=== PATIENT | male | born 1955 | race Caucasian/White ===

== ENCOUNTER 2022-02-27 23:16 | Emergency (ER) | payer MEDICARE, OTHER, SELFPAY ==
[2022-02-27 23:42] VITALS: BP 178/83; PULSE 60; RESP 16; TEMP 36.7; O2SAT 95; BMI 32.3
[2022-02-28] MEDS: MECLIZINE HCL 25 MG TABLET PO (00:48)
[2022-02-28] MEDS: ONDANSETRON ODT 4 MG TAB PO (00:48)
[2022-02-28] MEDS: diazePAM 5 MG TABLET PO (00:49)
[2022-02-28 01:55] VITALS: BP 141/89; PULSE 59; RESP 16; O2SAT 95
--- NOTE | 2022-02-28 08:20 | ED.DIZZY ---
HPI - Dizziness General Chief Complaint: Dizziness/Vertigo Stated Complaint: Dizzy and head spinning and forgetful Time Seen by Provider: 02/28/22 00:13 Source: patient, family and RN notes reviewed History of Present Illness HPI Narrative: 66-year-old man presenting to the emergency department with complaint of 2, now 3rd day of dizziness with movement. He is saying that he has vertigo, that his son has similar. Initially saying that he is dizzy all the time, further conversation modified to sense of lightheadedness when his eyes are closed. No loss of vision. No complaint of headache. No loss of sensation or focal weakness. This seems to have started upon waking. He has fallen a couple of times indicating right upper arm bruise. Does endorse a history of chronic sinusitis. No fever or recent cough or cold symptoms, other than the sinusitis as mention. No facial pain. No chest pain, no palpitations. No shortness of breath. No vomiting but does have nausea. Extracted from my prior visit with Mr. Nguyễn-- PAST HISTORY:? 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 Related Data Home Medications Medication Instructions Recorded Confirmed nutritional supplements 02/27/22 Previous Rx's Medication Instructions Recorded diazepam 5 mg tablet 5 - 10 mg PO BID PRN #10 tab 02/28/22 diazepam 5 mg tablet (Valium) 5 - 10 mg PO TID PRN #1 tab 02/28/22 meclizine 25 mg tablet 25 mg PO TID PRN #21 tab 02/28/22 meclizine 25 mg tablet 25 mg PO TID PRN #21 tab 02/28/22 Allergies Allergy/AdvReac Type Severity Reaction Status Date / Time No Known Drug Allergies Allergy Verified 02/27/22 23:48 Review of Systems Status of ROS: Reports: 10 or more systems reviewed and unremarkable except as noted in History and below [facility] Social History Smoking Status: Never smoker How often do you have a drink containing alcohol: never AUDIT-C Alcohol total score: 0 Non-prescribed substance use: denies use Exam Narrative: Exam Narrative: General: pleasant, nad, breathing easily. CN 2 - 12 intact. Mentating normally. Speaking easily. Dressed in shirt Skin: warm and dry and well-perfused peripherally without apparent rash. There is light bruising on the posterior right upper arm. HEENT: head looks atraumatic. Ears canals are clear and TMs without evidence of inflammation or trauma. Eyes are non-icteric, without sclera injection, PERRLA. EOMi. He sounds congested. There is no facial swelling erythema or tenderness. Oropharynx is moist, symmetrical. Neck and Back: Neck is supple, without tenderness and without lymphadenopathy. Back without tenderness. Cardiac: RRR no MRG Lungs/Chest: clear Abdomen/Pelvis: Soft and overweight Musculoskeletal/Extremities: Moving all extremities without difficulty, fluidly. Full strength. as above No extremity edema. Normal sensation. Well perfused Further neuro-there is nystagmus more left beating I would say. did do hints exam as well. This worsened symptoms. Positive to the left and little less so to the right. Const: Vital Signs, click to edit/add: Vital Signs - 24 hr 02/27/22 23:42 02/28/22 01:55 Temperature 98.1 F Pulse Rate [Left P ulse Oximeter] 60 59 L Respiratory Rate 16 16 Blood Pressure [Ri ght Upper Arm] 178/83 H 141/89 H Pulse Oximetry 95 95 Documenting provider has reviewed patient's vital signs: yes Course Course Hospital Course: See exam and interview above & MDM below Vital Signs Vital signs: Initial Vital Signs Temperature 98.1 F 02/27/22 23:42 Temperature Source Temporal Artery Scan 02/27/22 23:42 Pulse Rate 60 02/27/22 23:42 Respiratory Rate 16 02/27/22 23:42 Blood Pressure 178/83 H 02/27/22 23:42 Blood Pressure Mean 114 02/27/22 23:42 Blood Pressure Position Sitting 02/27/22 23:42 Pulse Oximetry 95 02/27/22 23:42 Oxygen Delivery Method 02/27/22 23:42 Vital Signs Temperature 98.1 F 02/27/22 23:42 Pulse Rate 60 02/27/22 23:42 Respiratory Rate 16 02/27/22 23:42 Blood Pressure 178/83 H 02/27/22 23:42 Pulse Oximetry 95 02/27/22 23:42 Temperature 98.1 F 02/27/22 23:42 Pulse Rate 59 L 02/28/22 01:55 Respiratory Rate 16 02/28/22 01:55 Blood Pressure 141/89 H 02/28/22 01:55 Pulse Oximetry 95 02/28/22 01:55 MDM - Dizziness MDM Narrative Medical decision making narrative: I appreciate this history of normal-pressure hydrocephalus and schwannoma. Duration of symptoms lends less urgency to stroke evaluation. Given story and exam findings I think vertigo of peripheral origin is more likely. Decided to test with Valium. Also gave meclizine. On reassessment symptoms have lessened. Feels he can go home. I offered work note; he thought that was a good idea. Discharged with prescriptions for Valium and meclizine. Medical Records Attestation: I reviewed the patient's medical records. Discharge Plan Discharge Clinical Impression: Peripheral positional vertigo Patient Disposition: Home w/ Parent or Adult Condition: Improved Additional Instructions: Hydrate. Rest. If not too sedating, take the meclizine regularly dosed over the next 4-5 days. If you can begin to say that turning your head toward the left, for example, seems to exacerbate your symptoms, it may bethat the left inner ear is involved and Valorie maneuvers might be helpful focus on that left side. Same goes for the right side. See handout on Valorie maneuvers. Physical therapy can be helpful here. You might schedule with your primary doctor to get in with physical therapy/[facility]; it may be that you can schedule with physical therapy directly. Return for new and focal weakness, intractable vomiting, severe headache. Prescriptions: New meclizine 25 mg tablet 25 mg PO TID PRN (Reason: dizziness) Qty: 21 1RF diazepam [Valium] 5 mg tablet 5 - 10 mg PO TID PRN (Reason: for severe dizziness) Qty: 1 0RF diazepam 5 mg tablet 5 - 10 mg PO BID PRN (Reason: for more severe dizziness) Qty: 10 0RF meclizine 25 mg tablet 25 mg PO TID PRN (Reason: dizziness) Qty: 21 0RF No Action nutritional supplements 0RF Follow Up/Referrals: Sanjeev Castro MD [Primary Care Provider] - Stand Alone Forms: [facility] Info Instructions
== END 2022-02-28 02:00 | disposition home or self-care (01) ==
PROVIDERS: Emergency Provider Family Medicine; PCP Family Medicine
DX: H81.399 Other peripheral vertigo, unspecified ear (principal)
CPT/HCPCS: 99283; 99284; A9270

== ENCOUNTER 2022-05-21 10:36 | Emergency (ER) | payer MEDICARE, OTHER, SELFPAY ==
[2022-05-21 10:48] VITALS: BP 184/96; PULSE 72; RESP 18; TEMP 36.8; O2SAT 96; BMI 34.3
[2022-05-21 11:27] LABS: Appearance Urine Clear (Clear); Bilirubin Urine Negative (Negative); Blood Urine 2+ (Negative); Color Urine Yellow (Yellow); Glucose Urine Negative (Negative); Ketones Urine Negative (Negative); Leukocyte Esterase Urine Negative (Negative); Nitrite Urine Negative (Negative); Protein Urine Negative (Negative); Specific Gravity Urine 1.015 (1.000-1.030); Urobilinogen Urine 0.2 (0.2-1.0)
[2022-05-21 11:41] LABS: WBC Urine 0-2 (0-5)
--- NOTE | 2022-05-21 12:14 | CRLHL7_ITS ---
For Patients: As a result of the Century Cures Act, medical imaging exams and procedure reports are released immediately into your electronic medical record. You may view this report before your referring provider. If you have questions, please contact your health care provider. INDICATION: Urinary issues, constipation TECHNIQUE: Abdomen/Pelvis radiograph 4 views COMPARISON: None FINDINGS: The sensitivity and specificity of the exam are moderately limited by the patient`s body habitus. Bowel: The bowel gas pattern is normal without evidence of bowel obstruction. Soft tissue: No evidence of pneumoperitoneum present. No suspicious calcifications noted. Surgical clips are noted in the right pelvis. Bone: Unremarkable for age. IMPRESSION: 1. Unremarkable appearance of the visualized abdomen. Dictated by: Kelvin Carnes MD @ 05/21/2022 13:29:03 (Electronically Signed)
--- NOTE | 2022-05-21 12:15 | ED_ITS ---
HPI - General Adult General Time Seen by Provider: 12:16 Date Seen: 05/21/22 Chief complaint: Urogenital Problems, Male Stated complaint: Urinary tract issues Time Seen by Provider: 05/21/22 12:13 Source: patient Mode of arrival: ambulatory Limitations: no limitations History of Present Illness HPI narrative: Marin is a 66 year old male past medical history of prostatectomy 20 years ago, chronic kidney disease, depression and anxiety presents emerged department via private car with urogenital problem. Patient states that since he had prostate surgery 20 years ago he also received radiation, He has had issues and was told to wear a depends.Patient feels that over the last few weeks and now days he has had increased urinary frequency, urgency, no dysuria or hematuria. patient feels that he has not complete emptied, it is annoying because he keeps running bathroom. Patient feels that something is pushing against his bladder, patient denies any fevers or chills, denies any back pain her abdominal pain, he does get some left upper quadrant abdominal bloating from time to time, he feels more gassy, he states that his bowel movements, are smal l, he denies any constipation he denies any upper respiratory complaints, he is scheduled to see orthopedics here in [place] about his pain and possible meniscectomy. He has not had a bladder infection in the past. Related Data Home Medications Medication Instructions Recorded Confirmed nutritional supplements 02/27/22 Previous Rx's Medication Instructions Recorded diazepam 5 mg tablet 5 - 10 mg PO BID PRN for more 02/28/22 severe dizziness #10 tabs diazepam 5 mg tablet (Valium) 5 - 10 mg PO TID PRN for severe 02/28/22 dizziness #1 tab meclizine 25 mg tablet 25 mg PO TID PRN dizziness #21 tabs 02/28/22 meclizine 25 mg tablet 25 mg PO TID PRN dizziness #21 tabs 02/28/22 tamsulosin 0.4 mg capsule (Flomax) 0.4 mg PO DAILY #7 caps 05/21/22 Allergies Allergy/AdvReac Type Severity Reaction Status Date / Time No Known Drug Allergies Allergy Verified 02/27/22 23:48 Review of Systems Status of ROS: Reports: 10 or more systems reviewed and unremarkable except as noted in History and below PFSH PFS Social History Smoking Status: Light tobacco smoker What tobacco products do you use: cigars Do you use any of these nicotine containing products: None Second hand tobacco smoke exposure: No How often do you have a drink containing alcohol: never AUDIT-C Alcohol total score: 0 Non-prescribed substance use: denies use service: Yes Exam Narrative: Exam Narrative: general: no obvious distress sitting comfortably HEENT: pupils equal round reactive to light, extraocular muscles intact neck: supple full range of motion lungs: clear to auscultation bilaterally heart: normal sinus rhythm S1-S2 abdomen: bowel sounds present, nontender in all four quadrants. genitourinary: normal scrotum and testes, no penile lesions. muscle skeletal: nontender to palpation in the lower lumbar spine, no CVA tenderness neuro: alert awake and oriented x3 Const: Vital Signs, click to edit/add: Vital Signs - 24 hr 05/21/22 10:48 05/21/22 13:32 Temperature 98.2 F 98.1 F Pulse Rate [Pulse Oximeter] 72 72 Respiratory Rate 18 16 Blood Pressure [Ri ght Upper Arm] 184/96 H 179/96 H Pulse Oximetry 96 97 Oxygen Delivery Me thod Room Air Room Air Course Course Hospital Course: 12:15 PM: AIDET performed. vitals are normal at this time, workup will include urinalysis, urine culture, CBC, CMP in bladder scan, to rule out infection. Differential diagnosis include but is not limited to BPH, X, prostatitis, prostate cancer neurogenic bladder, constipation and paruresis, this includes the life-threatening complication of cancer. Reevaluation(s) Reevaluation #1: Patient was updated on his urinalysis, lab urinalysis did show 2+ blood, 5-10 RBCs, no signs of any infection, imaging was unremarkable no signs of any bowel obstruction or constipation, CBC showed no leukocytosis, metabolic panel within normal limits, mild elevated lipase 381 the patient did not have any abdominal pain at this time. Wii obtain CT abdomen and pelvis without IV contrast, r/o urolithiasis. Time: 13:33 Reevaluation #2: patient updated on his imaging, IMPRESSION: 7 x 4 mm stone in the distal left ureter causing mild hydronephrosis. Plan to given him some IV fluids, flomax 0.4 mg, UA negative for infection. Patient wishes to be discharged he will take the Flomax, he has follow up with his primary care provider this Friday, no signs of infected stone. He will continue to push the fluids, He was given prescription for Flomax 0.4 mg over the next 7 days. Reasons return given. Vital Signs Vital signs: Initial Vital Signs Temperature 98.2 F 05/21/22 10:48 Temperature Source Temporal Artery Scan 05/21/22 10:48 Pulse Rate 72 05/21/22 10:48 Respiratory Rate 18 05/21/22 10:48 Blood Pressure 184/96 H 05/21/22 10:48 Blood Pressure Mean 125 05/21/22 10:48 Blood Pressure Position Sitting 05/21/22 10:48 Pulse Oximetry 96 05/21/22 10:48 Oxygen Delivery Method 05/21/22 10:48 Vital Signs Temperature 98.2 F 05/21/22 10:48 Pulse Rate 72 05/21/22 10:48 Respiratory Rate 18 05/21/22 10:48 Blood Pressure 184/96 H 05/21/22 10:48 Pulse Oximetry 96 05/21/22 10:48 Oxygen Delivery Method 05/21/22 10:48 Temperature 98.1 F 05/21/22 13:32 Pulse Rate 72 05/21/22 13:32 Respiratory Rate 16 05/21/22 13:32 Blood Pressure 179/96 H 05/21/22 13:32 Pulse Oximetry 97 05/21/22 13:32 Oxygen Delivery Method 05/21/22 13:32 Medical Decision Making Lab Data Labs: Lab Results 05/21/22 05/21/22 05/21/22 Range/Units 11:07 12:36 12:36 WBC 9.92 (4.50-11.00) K/uL RBC 5.31 (4.30-5.90) m/uL Hgb 16.9 (13.5-17.5) gm/dL Hct 48.9 (37.0-53.0) % MCV 92 (80-100) fL MCH 32 (26-34) pg MCHC 35 (32-36) gm/dL RDW Coeff of [place] 12.3 (11.5-15.5) % Plt Count 248 (140-440) K/uL Neut % (Auto) 71.8 (42.0-72.0) % Lymph % (Auto) 16.9 L (20-44) % Chase % (Auto) 7.1 (0.0-11.0) % Eos % (Auto) 3.6 (0.0-7.0) % Baso % (Auto) 0.4 (0.0-3.0) % Neut # (Auto) 7.12 H (1.7-7.0) K/uL Lymph # (Auto) 1.70 (0.90-2.90) K/uL Chase # (Auto) 0.70 (0.00-0.90) K/UL Eos # (Auto) 0.36 (0.00-0.50) K/uL Baso # (Auto) 0.04 (0.00-0.30) K/uL Abs Immat Gran (auto) 0.02 (0.00-0.30) K/uL Sodium 139 (135-149) mmol/L Potassium 4.3 (3.6-5.1) mmol/L Chloride 102 (96-114) mmol/L Carbon Dioxide 26 (20-32) mmol/L BUN 16 (7-30) mg/dL Creatinine 1.1 (0.5-1.5) mg/dL Estimated Creat Clear 53.82 Estimated GFR 73 ml/min Glucose 96 (60-115) mg/dL Calcium 10.6 (8.4-10.6) mg/dL Total Bilirubin 0.7 (0.1-1.5) mg/dL AST 32 (12-35) U/L ALT 48 (4-50) U/L Alkaline Phosphatase 106 (40-150) U/L Total Protein 7.7 (6.0-8.3) g/dL Albumin 4.6 (3.3-5.0) g/dL Lipase 381 H (23-300) U/L Urine Color Yellow (Yellow) Urine Appearance Clear (Clear) Urine pH 6.0 (5.0-8.5) Ur Specific [place] 1.015 (1.000-1.030) Urine Protein Negative (Negative) Urine Glucose (UA) Negative (Negative) Urine Ketones Negative (Negative) Urine Blood 2+ A (Negative) Urine Nitrite Negative (Negative) Urine Bilirubin Negative (Negative) Urine Urobilinogen 0.2 (0.2-1.0) Ur Leukocyte Esterase Negative (Negative) Urine RBC 5-10 A (0-2) Urine WBC 0-2 (0-5) Ur Squamous Epith Cells None (None-Few) Urine Bacteria None (None) Discharge Plan Discharge Clinical Impression: Urolithiasis Patient Disposition: Home, Self-Care Condition: Improved Instructions: Renal Colic (ED) Additional Instructions: To take the Flomax 0.4 mg daily until his appointment with primary care provider this Friday, continue to push the fluids, Motrin 400-600 mg every 4-6 hours as needed for pain, to follow up as scheduled this Friday with primary care provider, return if worsening symptoms. Activity Level: Activity as Tolerated Prescriptions: New tamsulosin [Flomax] 0.4 mg capsule 0.4 mg PO DAILY Qty: 7 2RF No Action nutritional supplements meclizine 25 mg tablet 25 mg PO TID PRN (Reason: dizziness) Qty: 21 1RF diazepam [Valium] 5 mg tablet 5 - 10 mg PO TID PRN (Reason: for severe dizziness) Qty: 1 0RF diazepam 5 mg tablet 5 - 10 mg PO BID PRN (Reason: for more severe dizziness) Qty: 10 0RF meclizine 25 mg tablet 25 mg PO TID PRN (Reason: dizziness) Qty: 21 0RF Follow Up/Referrals: Sanjeev Castro MD [Staff Physician] - Stand Alone Forms: [facility] Info Instructions
[2022-05-21 12:45] LABS: Basophils Absolute Auto 0.04 K/uL (0.00-0.30); Basophils Percent Auto 0.4 % (0.0-3.0); Eosinophils Absolute Auto 0.36 K/uL (0.00-0.50); Eosinophils Percent Auto 3.6 % (0.0-7.0); Hematocrit 48.9 % (37.0-53.0); Hemoglobin* 16.9 gm/dL (13.5-17.5); Immature Granulocytes Abs Auto 0.02 K/uL (0.00-0.30); Lymphocytes Percent Auto 16.9 % (20-44); Mean Corpuscular HGB Conc 35 gm/dL (32-36); Mean Corpuscular Hemoglobin 32 pg (26-34); Mean Corpuscular Volume 92 fL (80-100); Monocytes Percent Auto 7.1 % (0.0-11.0); Neutrophils Absolute Auto 7.12 K/uL (1.7-7.0); Neutrophils Percent Auto 71.8 % (42.0-72.0); Platelet Count* 248 K/uL (140-440); RDW Coefficient of Variation % 12.3 % (11.5-15.5); Red Blood Count 5.31 m/uL (4.30-5.90); White Blood Count* 9.92 K/uL (4.50-11.00)
[2022-05-21 12:58] LABS: Slide Review Reflex No
[2022-05-21 13:00] LABS: Albumin* 4.6 g/dL (3.3-5.0); Chloride* 102 mmol/L (96-114)
[2022-05-21 13:01] LABS: Potassium* 4.3 mmol/L (3.6-5.1); Sodium* 139 mmol/L (135-149)
[2022-05-21 13:03] LABS: Alkaline Phosphatase* 106 U/L (40-150); Aspartate Amino Transferase* 32 U/L (12-35); Bilirubin Total* 0.7 mg/dL (0.1-1.5); Blood Urea Nitrogen* 16 mg/dL (7-30); Carbon Dioxide* 26 mmol/L (20-32); Creatinine* 1.1 mg/dL (0.5-1.5); Est. Creatinine Clearance* 53.82; Estimated Glomerular Filt Rate 73 ml/min; Glucose* 96 mg/dL (60-115); Lipase* 381 U/L (23-300); Total Protein* 7.7 g/dL (6.0-8.3)
[2022-05-21 13:04] LABS: Alanine Aminotransferase* 48 U/L (4-50); Calcium* 10.6 mg/dL (8.4-10.6)
[2022-05-21 13:32] VITALS: BP 179/96; PULSE 72; RESP 16; TEMP 36.7; O2SAT 97
--- NOTE | 2022-05-21 13:39 | CRLHL7_ITS ---
For Patients: As a result of the Century Cures Act, medical imaging exams and procedure reports are released immediately into your electronic medical record. You may view this report before your referring provider. If you have questions, please contact your health care provider. INDICATION: Urinary frequency and retention. TECHNIQUE: CT abdomen and pelvis without contrast. COMPARISON: 12/31/2015. FINDINGS: Lower chest: Unremarkable. Liver: Normal in size and attenuation. No suspicious masses. Gallbladder and bile ducts: Minimal cholelithiasis. No biliary dilatation. Pancreas: Unremarkable. No mass or inflammation. Spleen: Normal in size. No masses. Adrenal glands: Normal in size. No nodules. Kidneys: 7 x 4 mm stone in the distal left ureter near the UVJ is causing mild hydronephrosis. No other stones. Prominent simple appearing cyst is in the cortex of the right kidney. GI tract: Sigmoid diverticulosis. Otherwise unremarkable GI tract. Normal appendix. Vasculature: Abdominal aorta is normal in caliber. Lymph nodes: No lymphadenopathy. Peritoneum/Abdominal Wall: Unremarkable. No sign of mass or infiltration. No free air or significant free fluid. Pelvis: Prostatectomy changes. Pelvic structures otherwise unremarkable. Bones: Unremarkable for age. IMPRESSION: 7 x 4 mm stone in the distal left ureter causing mild hydronephrosis. Please note that all CT scans at this facility use dose modulation, iterative reconstruction, and/or weight-based dosing when appropriate to reduce radiation dose to as low as reasonably achievable. Dictated by Kaushal Dolan MD @ 05/21/2022 2:44:11 PM (Electronically Signed)
--- OUTSIDE RECORDS SUMMARY | 2022-05-21 13:43 | XMS_ITS | Encounter Summary ---
:1955 Author Organization [facility] Address [address] [place] [address] Care Team Providers Name Role Phone Sanjeev Castro MD Primary Care Provider [facility] Unavailable [phone] Encounter Details Date Type Department Care Team Description 03/13/2022 Travel Social History Tobacco Use Types Packs/Day Years Used Date Smoking Tobacco: Former Cigarettes Quit : 1973 Smokeless Tobacco: Never Alcohol Use Standard Drinks/Week Comments Not Currently 1 (1 standard drink = 0.6 oz pure alcoho l) very rarely Alcohol Habits Answer Date Recorded How often do you have a drink containing alcohol? Never 05/15/2021 How many drinks containing alcohol do you have on a Not aske d typical day when you are drinking? How often do you have six or more drinks on one occasion? No t asked Comment: very rarely 05/15/2021 Sex Assigned at Date Recorded Male 03/12/2022 2:47 PM CDT COVID-19 Exposure Response Date Recorded In the last 10 days, have you been in contact with No / Unsu re 03/13/2022 1:19 PM CDT someone who was confirmed or suspected to have Coronavirus/COVID-19? documented as of this encounter Plan of Treatment Not on filedocumented as of this encounter Visit Diagnoses Not on filedocumented in this encounter Care Teams Mate Chief Relationship Specialty Start Date End Date Sanjeev Castro MD PCP - General 04/25/21 [address] [place] [address] [facility] PCP - [facility] [place] [address] [place] [phone] documented as of this encounter
--- OUTSIDE RECORDS SUMMARY | 2022-05-21 13:43 | XMS_ITS | Encounter Summary ---
:1955 Author Organization [facility] Address [address] [place] [address] Care Team Providers Name Role Phone Sanjeev Castro MD Primary Care Provider Reason for Visit (Routine) - Closed Specialty Diagnoses / Procedures Referred By Contact Refer red To Contact Diagnoses NPH (normal pressure hydrocephalus) (HCC) Schwannoma of nerve of head Brandi Ortiz PA-C Procedures MRI BRAIN W/O&W CON [address] [place] [id number] Referral ID Status Reason Start Date Expiration Date Visits Requ ested Visits Authorized [id number] Closed 05/15/2021 1 1 Encounter Details Date Type Department Care Team Description 05/27/2021 Ancillary Procedure [facility] of NPH (normal pressure hydrocephalus) (HCC); Neurology - [place] Schwannoma of nerve of head [facility] [address] [place] [id number] Social History Tobacco Use Types Packs/Day Years [...] Exposure Response Date Recorded In the last month, have you been in contact with No / Unsure 05/15/2021 12:17 PM CDT someone who was confirmed or suspected to have Coronavirus / COVID-19? documented as of this encounter Last Filed Vital Signs Vital Sign Reading Time Taken Comments Blood Pressure - - Pulse - - Temperature - - Respiratory Rate - - Oxygen Saturation - - Inhaled Oxygen Concentration - - Weight 91.6 kg (202 lb) 05/27/2021 11:53 AM CDT Height - - Body Mass Index - - documented in this encounter Plan of Treatment Not on filedocumented as of this encounter Procedures Procedure Name Priority Date/Time Associated Diagnosis Comme nts MRI BRAIN W/O&W CON Routine 05/27/2021 12:18 PM NPH (normal pr essure Results for this CDT hydrocephalus) ( HCC) procedure are in Schwannoma of nerve the resu lts of head section. documented in this encounter Results MRI BRAIN W/O&W CON (05/27/2021 12:18 PM CDT) Anatomical Region Laterality Modality Head Magnetic Resonance Specimen (Source) Anatomical Collection Method Collection Time Re ceived Time Location / / Volume Laterality 06/01/2021 11:01 AM CDT Addenda Addendum by Ta Escobar MD on 1 11:07 AM CDT ADDENDUM #1 ADDENDUM: Further review demonstrates a homogeneous, lobulated extra-axial mass at the right lateral prepontine cis tern, extending into the dorsal aspect of the right trigeminal cistern. 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 This is gross ly unchanged from the previous exam, which was performed without intrav enous contrast. No significant deformity of the right middle cerebellar peduncle or parenchymal edema is identified. Dr Brandi Ortiz was notified with a voicem ail on her personal phone of the updated MRI results at 1100 hours on . ORIGINAL REPORT EXAM: ??MRI BRAIN W/O&W CON 05/27/2021 CLINICAL INFORMATION: ??CANCER/TUMOR/MAS S/METS. Normal pressure hydrocephalus. TECHNIQUE: Sagittal FLAIR T1, axial FLAI R T2, axial fat saturated FSE T2, axial DWI, axial T1, axial GRE, axial an d coronal T1 post gadolinium. 9 cc contrast was administered intravenously. COMPARISON: Previous outside brain MRI d ated 12/02/2019. FINDINGS: PREVIOUS SURGERY: None. INFARCT: No restricted diffusion or othe r evidence of acute infarct. No chronic cortical infarct demonstrated. HEMORRHAGE: No acute hemorrhage demonstr ated. There are a few punctate foci of magnetic susceptibility demonstr ated in the parenchyma of the right parietal and both temporal lobes, as well as right cerebellum, likely representing remote microhemorrha ges. These have increased in number from the previous exam. MASS LESION: None. ENHANCEMENT: No abnormal gadolinium enha ncement demonstrated. VENTRICLES/BRAIN VOLUME: Mild generalize d cerebral volume loss is present. Ventricular size is slightly out of prop ortion to the lesser degree of sulcal prominence, but stable in appeara nce as compared to the 2019 MRI. WHITE MATTER: A moderate number of nonsp ecific T2 signal hyperintensities are present in the supratentorial white matter. DEEP MCGREGOR NUCLEI: Normal in appearance. POSTERIOR FOSSA: Brainstem and cerebellu m demonstrate a normal appearance. VASCULAR STRUCTURES: Expected flow voids are present in the major vascular structures. ORBITS: No abnormality demonstrated. PARANASAL SINUSES: No significant diseas e demonstrated. 1. ??No acute abnormality. 2. ??A few punctate foci of magnetic jordin ceptibility in the cerebral and cerebellar hemispheres may represent foc i of chronic microhemorrhages. An underlying microangiopathy such as amylo id is a consideration. 3. 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 4. ??Mild generalized cerebral volume lo ss. Ventriculomegaly is slightly out of proportion to the lesser degree o f sulcal prominence, stable as compared to the 2019 MRI. SIGNED BY: Roger Avery M.D. Impressions 05/28/2021 3:09 PM CDT 1. ??No acute abnormality. 2. ??A few punctate foci of magnetic jordin ceptibility in the cerebral and cerebellar hemispheres may represent foci of chronic microhemorrhages. An underlying microangiopathy such as amyloid is a consideration. 3. 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 4. ??Mild generalized cerebral volume lo ss. Ventriculomegaly is slightly out of proportion to the lesser degree of sulcal prominence, stable as compared to the 2020 MRI. SIGNED BY: Roger Avery M.D. Narrative 05/28/2021 3:09 PM CDT EXAM: ??MRI BRAIN W/O&W CON 05/27/2021 CLINICAL INFORMATION: ??CANCER/TUMOR/MAS S/METS. Normal pressure hydrocephalus. TECHNIQUE: Sagittal FLAIR T1, axial FLAI R T2, axial fat saturated FSE T2, axial DWI, axial T1, axial GRE, axial and coronal T1 post gadolinium. 9 cc contrast was administered intravenously. COMPARISON: Previous outside brain MRI d ated 12/02/2019. FINDINGS: PREVIOUS SURGERY: None. INFARCT: No restricted diffusion or othe r evidence of acute infarct. No chronic cortical infarct demonstrated. HEMORRHAGE: No acute hemorrhage demonstr ated. There are a few punctate foci of magnetic susceptibility demonstrated in the parenchyma of the right parietal and both temporal lobes, as well as right cere bellum, likely representing remote micro hemorrhages. These have increased in number from the previous exam. MASS LESION: None. ENHANCEMENT: No abnormal gadolinium enha ncement demonstrated. VENTRICLES/BRAIN VOLUME: Mild generalize d cerebral volume loss is present. Ventricular size is slightly out of proportion to the lesser degree of sulcal prominence, but stable in appearance as compared to the 2020 MRI. WHITE MATTER: A moderate number of nonsp ecific T2 signal hyperintensities are present in the supratentorial white matter. DEEP MCGREGOR NUCLEI: Normal in appearance. POSTERIOR FOSSA: Brainstem and cerebellu m demonstrate a normal appearance. VASCULAR STRUCTURES: Expected flow voids are present in the major vascular structures. ORBITS: No abnormality demonstrated. PARANASAL SINUSES: No significant diseas e demonstrated. Procedure Note Roger Avery MD / Ta Escobar MD - 05/28/2021 EXAM: MRI BRAIN W/O&W CON 05/27/2021 CLINICAL INFORMATION: CANCER/TUMOR/MASS/ METS. Normal pressure hydrocephalus. TECHNIQUE: Sagittal FLAIR T1, axial FLAI R T2, axial fat saturated FSE T2, axial DWI, axial T1, axial GRE, axial and coronal T1 post gadolinium. 9 cc contrast was administered intravenously. COMPARISON: Previous outside brain MRI d ated 12/02/2019. FINDINGS: PREVIOUS SURGERY: None. INFARCT: No restricted diffusion or othe r evidence of acute infarct. No chronic cortical infarct demonstrated. HEMORRHAGE: No acute hemorrhage demonstr ated. There are a few punctate foci of magnetic susceptibility demonstrated in the parenchyma of the right parietal and both temporal lobes, as well as right cerebellum, likely representing remote microhemorrha ges. These have increased in number from the previous exam. MASS LESION: None. ENHANCEMENT: No abnormal gadolinium enha ncement demonstrated. VENTRICLES/BRAIN VOLUME: Mild generalize d cerebral volume loss is present. Ventricular size is slightly out of proportion to the lesser degree of sulcal prominence, but stable in appearance as compared to the 2020 MRI. WHITE MATTER: A moderate number of nonsp ecific T2 signal hyperintensities are present in the supratentorial white matter. DEEP MCGREGOR NUCLEI: Normal in appearance. POSTERIOR FOSSA: Brainstem and cerebellu m demonstrate a normal appearance. VASCULAR STRUCTURES: Expected flow voids are present in the major vascular structures. ORBITS: No abnormality demonstrated. PARANASAL SINUSES: No significant diseas e demonstrated. IMPRESSION 1. No acute abnormality. 2. A few punctate foci of magnetic susce ptibility in the cerebral and cerebellar hemispheres may represent foci of chronic microhemorrhages. An underlying microangiopathy such as amyloid is a consideration. 3. 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 4. Mild generalized cerebral volume loss . Ventriculomegaly is slightly out of proportion to the lesser degree of sulcal prominence, stable as compared to the 2020 MRI. SIGNED BY: Roger Avery M.D. 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 documented in this encounter Administered Medications Inactive Administered Medications - up to 3 most recent administrations Medication Order MAR Action Action Date Dose Rate Site gadobutroL (GADAVIST) 1 mmol/mL Given 05/27/2021 12:12 PM CDT 9 mL (604.72 mg/mL) solution 1-10 mL 1-10 mL, Intravenous, INTRA-PROCEDURE ONE TIME DOSE NEEDED, 1 dose, Starting on 05/27/21 at 1212, Until 05/27/21 at 1212, per procedure documented in this encounter Care Teams Stonecutter Relationship Specialty Start Date End Date Sanjeev Castro MD PCP - General 04/25/21 [address] [place] [address] documented as of this encounter
--- OUTSIDE RECORDS SUMMARY | 2022-05-21 13:43 | XMS_ITS | Encounter Summary ---
:1955 Author Organization [facility] Address [address] [place] [address] Care Team Providers Name Role Phone Sanjeev Castro MD Primary Care Provider Encounter Details Date Type Department Care Team Description 05/15/2021 Travel Social History Tobacco Use Types Packs/Day [...] / COVID-19? documented as of this encounter Plan of Treatment Not on filedocumented as of this encounter Visit Diagnoses Not on filedocumented in this encounter Care Teams Boiler Service Technician Relationship Specialty Start Date End Date Sanjeev Castro MD PCP - General 04/25/21 [facility] [place] [address] documented as of this encounter
--- OUTSIDE RECORDS SUMMARY | 2022-05-21 13:43 | XMS_ITS | Encounter Summary ---
:1955 Author Organization [facility] Address [address] [place] [address] Care Team Providers Name Role Phone Sanjeev Castro MD Primary Care Provider Reason for Referral Consultation (Routine) - Authorized Specialty Diagnoses / Procedures Referred By Contact Refer red To Contact Neurosurgery Diagnoses Schwannoma of nerve of head Cerebral ventriculomegaly Brandi Ortiz PA-C [place], Kyle M, [address] [place] [address] [address] [id number] [place] [address] [address] [place] [address] Phone: Fax: Referral ID Status Reason Start Expiration Visits Visits Date Date Requested Authorized [id number] Authorized Specialty 1 Services 1 Required Comments Trigeminal nerve schwannoma- balance, Reason for Visit Reason Comments Gait/Balance Follow up Encounter Details Date Type Department Care Team Description 06/01/2021 Office Visit [facility] of Brandi Ortiz Schwan noma of nerve of head (Primary Dx); Neurology - Safia MASON Cerebral ventriculomegaly; [facility] Vitamin B12 deficiency [address] [place] [address] Social History Tobacco Use Types Packs/Day Years [...] been in contact with No / Unsure 06/01/2021 10:38 AM CDT someone who was confirmed or suspected to have Coronavirus / COVID-19? documented as of this encounter Last Filed Vital Signs Vital Sign Reading Time Taken Comments Blood Pressure - - Pulse - - Temperature - - Respiratory Rate - - Oxygen Saturation - - Inhaled Oxygen Concentration - - Weight 90.7 kg (200 lb) 06/01/2021 11:18 AM CDT Height 166.4 cm (5' 5.5) 06/01/2021 11:18 AM CDT Body Mass Index 32.78 06/01/2021 11:18 AM CDT documented in this encounter Progress Notes Branid Ortiz PA-C - 06/01/2021 11:00 AM CDT Images from the original note were not included. [facility] [address] [place] [address], [address] [place] [address] Neurology Initial Note / Consultation 05/15/21 Assessment and Plan: 1. Cerebral Ventriculomegaly Diagnosed in 2015 when he was diagnosed with his Schwannoma and NPH as well Worsening somnolence, gait and incontinence now Imaging until 2019 stable , no imaging since MRI brain w/wo due - stable schwannoma, ventriculomegaly due atrophy 2. Schwannoma of nerve of head Last imaging in 2019 MRI brain w/wo as above ----Now with some issues with taste and smell, ---referral to Neurosurgery 3. Vitamin B[facility] deficiency [facility] MMA and B12 -----MMA 94, B12 1700- Decrease to QOD Chief Complaint: Gait/Balance and Follow up History of Present Illness: HPI: Marin Nguyễn is a 65 y.o. male who presents for a follow up appointment Patient was diagnosed with NPH in 2015 when he had an MRI which showed ventrigulomegally and a CPA Scwhannoma. Patient recently feels his balance and walking. Patient feels like when he turns he will fall to right more frequently. When he is sitting he feels like he is falling forward. Patient feels he is drained very easily. Patient does drive but very rarely due to this fatigue. Patient has a lotof trouble focus. Patient states his memory is spotty. Has trouble with immediate short term memory. [facility] is very good. Patient has started feeling numbness/weakness on left side. Feels like hecan sleep all the time. HX of prostate cancer with radaition Patient has increased urgency and incontinent of bowels. Two episodes in the past 4 months. Denies any urinary issues. Patient returns for a follow up. No more episodes of urgency and incontinence. Still with issues nowwith smell and taste of food. States this has been off and on for years. Denies any recent illness. Still with gait issues. Still with headaches on left temporal area Past Medical History: Past Medical History: Diagnosis Date ??? Essential hypertension 12/07/2014 ??? 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 Stable from MRI in November 2019. ??? Normal pressure hydrocephalus (HCC) 09/05/2015 ??? Prostate cancer (HCC) 12/07/2014 ??? Pure hypercholesterolemia 12/07/2014 ??? RLS (restless legs syndrome) 12/07/2014 Past Surgical History: Past Surgical History: Procedure Laterality Date ??? HX RADICAL PROSTATECTOMY N/A Medications: Current Outpatient Medications: Medication Sig ??? atorvastatin (LIPITOR) 20 mg oral tablet Take 20 mg by mouth. ??? cholecalciferol (VITAMIN D3) 25 mcg (1,000 unit) oral Cap TAKE TWO TABLETS BY MOUTH EVERY DAY ??? cyanocobalamin 1,000 mcg oral tablet Take 1,000 mcg by mouth. ??? diclofenac sodium (VOLTAREN) 1 % Top gel Apply to skin. ??? FLUoxetine (PROZAC) 20 mg oral capsule Take 20 mg by mouth. ??? lisinopriL (PRINIVIL) 10 mg oral tablet Take 10 mg by mouth. ??? naproxen sodium 220 mg oral tablet Take 440 mg by mouth. ??? ondansetron (ZOFRAN) 8 mg oral tablet TAKE ONE TABLET BY MOUTH EVERY EIGHT HOURS NEEDED FOR NAUSEA/VOMITING. Allergy: Yellow dye and Kiwi Family History: Family History Problem Relation Name Age of Onset ??? Kidney Disease Mother ??? High Blood Pressure Mother ??? Alzheimer's Disease Father ??? Obesity Sister Social History: Social History Tobacco Use ??? Smoking status: Former Smoker Quit date: 1974 Years since quittin.8 ??? Smokeless tobacco: Never Used Vaping Use ??? Vaping Use: Never used Substance Use Topics ??? Alcohol use: Not Currently Alcohol/week: 1.0 standard drink Types: 1 Standard drinks or equivalent per week Comment: very rarely ??? Drug use: Never Physical Exam: There were no vitals taken for this visit. NEUROLOGIC EXAMINATION MENTAL STATUS: The patient is able to respond to simple commands and questions appropriately. Speech, orientation, memory, fund of knowledge, attention and concentration are normal. CRANIAL NERVES II THROUGH XII: II - XII are intact. MOTOR EXAMINATION: Muscle tone and bulk are normal throughout, without wasting or fasciculations. Strength testing is unremarkable and upper and lower extremities. Deep tendon reflexes are normal and symmetric. SENSORY EXAMINATION: Sensation is intact and symmetric to vibration, touch and temperature. CEREBELLAR EXAMINATION: No dysdiadochokinesis or dysmetria is noted, and coordination is normal. GAIT: Normal, able to stand without assistance Data: ROUTINE LABS [facility] 03/13/21 Vitamin B12: 154 Vitamin D level: 25.8 Labs 05/15/2021 Vitamin B12 ([facility]) 232 - 1,245 pg/mL 1,741??High?? Methylmalonic Acid ([facility]) 0 - 378 nmol/L 94 IMAGING: All imaging studies were reviewed personally MRI brain [facility] 12/02/2019 Impression: 1. No radiographic evidence of acute intracranial abnormalities. 2. Stable mild parenchymal volume loss with associated enlargement of the ventricles and sulci. Stable moderate chronic small vessel white matter ischemic changes. 3. 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 Dictated by Amaury Licona MD @ Dec 02 2019 ??2:22PM Signed by Dr. Amaury Licona @ Dec 02 2019 ??2:38PM MRI brain w/o and W contrast 06/01/2021 11:07 1. No acute abnormality. 2. A few punctate foci of magnetic susceptibility in the cerebral and cerebellar hemispheres may represent foci of chronic microhemorrhages. An underlying microangiopathy such as amyloid is a consideration. 3. 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 4. Mild generalized cerebral volume loss. Ventriculomegaly is slightly out of proportion to the lesser degree of sulcal prominence, stable as compared to the 2019 MRI ADDENDUM: Further review demonstrates a homogeneous, lobulated extra-axial mass at the right lateralprepontine cistern, extending into the dorsal aspect of the right trigeminal cistern. Appearance is most compatible with an incidental trigeminal schwannoma along the cisternal segment and dorsum of the trigeminal cistern, measuring 19 mm AP by 9 mm transverse by 10 mm in craniocaudal dimension. This is grossly unchanged from the previous exam, which was performed without intravenous contrast. No significant deformity of the right middle cerebellar peduncle or parenchymal edema is identified. ?? Dr Brandi Ortiz was notified with a voicemail on her personal phone of the updated MRI results at 1100hours on 06/01/2021. Brandi Ortiz PA-C 05/15/2021 TIME: I spent 40 minutes on the date of the encounter with this patient consisting of activities before, during, and after the encounter including time spent: ?? Preparing to see the patient including review of the chart, tests, and/or outside records. ?? Reviewing and verifying information regarding the chief complaint and [facility] and/or the patient. ?? Obtaining history and performing medically appropriate evaluation. ?? Counseling the patient regarding the diagnosis, additional diagnostic considerations, possible diagnostic testing, and any potential options for therapy, including conservative/lifestyle measures and pharmacotherapy including risks/benefits, side effects, and adverse effects. I also counseled the patient on how to contact me with any questions or concerns, new or worsening symptoms. Ordering medications, tests, and/or procedures, and documenting in the chart. Addendum: Personally spoke with Dr. Escobar regarding MRI results at 14:09 and discussed schwannoma. Brandi Ortiz PA-C documented in this encounter Plan of Treatment Scheduled Orders Name Type Priority Associated Diagnoses Order S chedule VITAMIN B12 ([facility]) Lab Routine Vitamin B12 deficie ncy Expected: 09/01/2021 (Approximate), Expires: 2021 METHYLMALONIC ACID, SERUM Lab Routine Vitamin B12 def iciency Expected: 09/01/2021 ([facility]) (Approximate), Expires: 2021 Scheduled Referrals Name Type Priority Associated Diagnoses Order S chedule REFERRAL NEUROSURGERY Referral Routine Schwannoma of nerve of head Ordered: Cerebral ventriculomegaly documented as of this encounter Visit Diagnoses Diagnosis Schwannoma of nerve of head - Primary Cerebral ventriculomegaly Other conditions of brain Vitamin B12 deficiency Other B-complex deficiencies documented in this encounter Care Teams Aesthetician Relationship Specialty Start Date End Date Sanjeev Castro MD PCP - General 04/25/21 [address] [place] [address] documented as of this encounter
--- OUTSIDE RECORDS SUMMARY | 2022-05-21 13:43 | XMS_ITS | Clinical Summary ---
:1955 Author Organization [facility] Address [address] [place] [address] Care Team Providers Name Role Phone Sanjeev Castro MD Primary Care Provider [facility], [facility] Unavailable [phone] Allergies Active Allergy Reactions Severity Noted Date Comments Cat Dander Unknown 09/18/2010 House Dust Unknown 09/18/2010 Kiwi Swelling, lips/tongue 01/08/2017 Oxybutynin Chloride Other 01/01/2010 Yellow Dye Swelling, lips/tongue High 04/09/2017 The ye llow dye in Mtn Dew Medications Medication Sig Dispensed Refills Start Date End Date Status cholecalciferol (VITAMIN TAKE TWO TABLETS 0 Active D3) 25 mcg (1,000 unit) BY MOUTH EVERY oral Cap DAY cyanocobalamin 1,000 mcg Take 1,000 mcg 0 03/14/2021 Active oral tablet by mouth. meclizine (ANTIVERT) 25 TAKE ONE TABLET 0 02/28/2022 Active mg oral tablet BY MOUTH THREE TIMES DAILY NEEDED for dizziness. diazePAM (VALIUM) 5 mg TAKE ONE OR TWO 0 02/28/2022 Active oral tablet TABLETS BY MOUTH TWICE DAILY NEEDED FOR MORE SEVERE DIZZINESS. Active Problems Problem Noted Date Peripheral positional vertigo 03/13/2022 Anxiety 12/08/2019 Primary osteoarthritis of right knee 01/20/2019 Overview: Formatting of this note might be differe nt from the original. January 2019 MRI showing meniscus and osteo arthritis changes. Apr 2019: right knee cortisone injectio n by Dr. Storm. CKD (chronic kidney disease) stage 3, GFR 30-59 ml/min 05/08/2017 Bilateral lower extremity edema 04/09/2017 Normal pressure hydrocephalus 09/05/2015 B12 deficiency 02/01/2015 Intracranial neoplasm 02/01/2015 Overview: Formatting of this note might be differe nt from the original. 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 Stable from MRI in November 2019. 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 Cerebral ventri culomegaly; NPH (normal pre ssure hydrocephalus) (HCC); Dizziness 03/13/2022 Travel from Last 3 Months Immunizations Name Administration Dates Next Due H1N1 Influenza 08/16/2009 Pneumococcal 23-Inge (Pneumovax) 07/18/2014 Tdap >7 yrs 08/18/2014 Family History Medical History Relation Comments Alzheimer's Disease Father High Blood Pressure Mother Kidney Disease Mother Obesity Sister Relation Status Comments Father Mother Sister Social History Tobacco Use Types Packs/Day Years [...] Date Recorded Male 03/12/2022 2:47 PM CDT Last Filed Vital Signs Vital Sign Reading Time Taken Comments Blood Pressure 160/94 03/13/2022 1:43 PM CDT Pulse - - Temperature - - Respiratory Rate - - Oxygen Saturation - - Inhaled Oxygen Concentration - - Weight 90.7 kg (200 lb) 03/13/2022 1:43 PM CDT Height 167.6 cm (5' 6) 03/13/2022 1:43 PM CDT Body Mass Index 32.28 03/13/2022 1:43 PM CDT Plan of Treatment Health Maintenance Due Date Last Done Comments AAA Ultrasound Screening 1955 Colonoscopy 1955 Diabetes Screening 1955 Hepatitis C Screening 1955 Lipid Screening 1955 Medicare Wellness Visit 1955 COVID-19 Vaccine (#1) 1955 Depression Assessment (PHQ-9) 1954 Zoster Vaccine (1 of 2) 1972 Yearly Review of HCD 2003 Pneumococcal 65+ (2 - PCV) 07/18/2015 07/18/2014 Influenza Vaccine (#1) 2022 08/16/2009 Adult Tetanus Booster 08/18/2024 08/18/2014 Insurance Payer Benefit Plan Subscriber ID Effective Phone Address Typ e / Group Dates MEDICARE MEDICARE PART [id number] 2021-Pres [address] Medicare A & B ent ATTN [place] [address] FOR [id number] 2021-Pres [phone] [place] [address] Care Teams Clerk General Office Relationship Specialty Start Date End Date Sanjeev Castro MD PCP - General 04/25/21 [address] [place] [address] [facility] PCP - Primary Care Clinic [place] [address] [place] [phone]
--- OUTSIDE RECORDS SUMMARY | 2022-05-21 13:43 | XMS_ITS | Encounter Summary ---
:1955 Author Organization [facility] Address [address] [place] [address] Care Team Providers Name Role Phone Sanjeev Castro MD Primary Care Provider [facility], [facility] Unavailable Reason for Referral Consultation (Routine) - Authorized Specialty Diagnoses / Procedures Referred By Contact Refer red To Contact Physical Therapy Diagnoses Dizziness Nora Kemp Md, Not Listed DYLAN LOERA no address [address] [place] [address] Referral ID Status Reason Start Expiration Visits Visits Date Date Requested Authorized [id number] Authorized Specialty 03/13/2022 1 1 Services Required Question Answer Service to provide Physical Therapy Referral reason Evaluate and Treat Comments New onset dizziness [facility] Reason for Visit Reason Comments Follow up Encounter Details Date Type Department Care Team Description 03/13/2022 Office Visit [facility] Nora Kemp Schwannoma of nerve of head (Primary Dx); Neurology - Cinthya Mcneill APRN, CNP Cerebral ventriculomegaly; [facility] [address] NPH (normal pressure hydrocephalus) (HCC ); [address] Dizziness [address] [place] [address] [place] [phone] Social History Tobacco Use Types Packs/Day Years [...] have Coronavirus/COVID-19? documented as of this encounter Last Filed [...] Mass Index 32.28 03/13/2022 1:43 PM CDT documented in this encounter Progress Notes Nora Kemp, EVARISTO, MOTION PICTURE SET GRIP - 03/13/2022 1:30 PM CDT Images from the original note were not included. [facility] [address] [place] [address], [address] [place] [address] Neurology Progress Note Assessment and Plan: #. Dizziness --Onset 03/06/22 --Patient has had multiple falls --Monitor BP at home first thing in morning and in evening ----Patient stopped all prescription medications Fall 2020 --Referral [facility] --Increase hydration #. Cerebral Ventriculomegaly Diagnosed in 2015 when he was diagnosed with his Schwannoma and NPH as well Worsening somnolence, gait and incontinence now MRI brain w/wo - stable schwannoma, ventriculomegaly due atrophy --stable 2021 #. Schwannoma of nerve of head MRI brain w/wo as above ----Now with some issues with taste and smell, ---referral to Neurosurgery #. Vitamin B12 deficiency [facility] Recheck MMA and B12 -----MMA 94, B12 1700- Decrease to QOD --Taking B complex, B12, C, D, E, potassium and zinc supplements Chief Complaint: Chief Complaint Patient presents with ??? Follow up Interval History: HPI: Patient was diagnosed with NPH in 2016 when he had an MRI which showed [...] Has trouble with immediate short term memory. [facility]CI is very good. Patient has started feeling numbness/weakness on left side. Feels like hecan sleep all the time. HX of prostate cancer with radaition ?? Patient has increased urgency and incontinent of bowels. Two episodes in the past 4 months. Denies any urinary issues. ?? Patient returns for a follow up. No more episodes of urgency and incontinence. Still with issues nowwith smell and taste of food. States this has been off and on for years. Denies any recent illness. Still with gait issues. Still with headaches on left temporal area 03/13/22: Marin Nguyễn is a 66 y.o. male who is seen in follow up Patient has had at least 3 falls in the last week due to dizziness, was seen in ER and given meclizine and valium. Valium only helps with sleep, takes rarely, meclizine is minimally helpful. PCP ordered MRI. Patient states he tends to run high in BP in doctors office. Review of Systems: Except as described above, review of systems is negative for any constitutional, HEENT, respiratory,cardiovascular, genitourinary, gastrointestinal, hematologic, endocrinologic, psychiatric, integument, musculoskeletal, and neurologic disorders. Medications: Current Outpatient Medications on File Prior to Visit Medication Sig Dispense Refill ??? atorvastatin (LIPITOR) 20 mg oral tablet [...] MOUTH EVERY EIGHT HOURS NEEDED FOR NAUSEA/VOMITING. No current facility-administered medications on file prior to visit. Physical Exam: BP (!) 160/94 Ht 1.676 m (5' 6) Wt 90.7 kg (200 lb) BMI 32.28 kg/m?? The patient is alert, cooperative and in no distress. NEUROLOGIC EXAMINATION MENTAL STATUS: The patient is able to respond to simple commands and questions appropriately. Speech, orientation, memory, fund of knowledge, attention and concentration are normal. CRANIAL NERVES II THROUGH XII: No facial weakness MOTOR EXAMINATION: Moves all extremities equally SENSORY EXAMINATION: No gross sensory deficits. CEREBELLAR EXAMINATION: No gross sensory deficits. GAIT: Normal including toe, heel and tandem. Data: ROUTINE LABS Cardiac Studies: Neurophysiology: IMAGING: All imaging studies were reviewed personally MRI brain 03/11/22: 1. No acute infarction. No significant change compared to 12/02/2019. 2. Moderate chronic microvascular ischemic changes and mild diffuse cerebral volume loss. 3. Stable presumed schwannoma involving the right trigeminal nerve cisternal segment and right Meckel cave. TIME: I spent 30 minutes on the date of the encounter with this patient consisting of activities before, during, and after the encounter including time spent: ?? Preparing to see the patient including review of the chart, tests, and/or outside records. ?? Reviewing and verifying information regarding the chief complaint and [facility]. ?? Obtaining history and performing medically appropriate evaluation. ?? Counseling the patient regarding the diagnosis, additional diagnostic considerations, possible diagnostic testing, and any potential options for therapy, including conservative/lifestyle measures and pharmacotherapy including risks/benefits, side effects, and adverse effects. I also counseled the patient on how to contact me with any questions or concerns, new or worsening symptoms. ?? Ordering medications, tests, and/or procedures, and documenting in the chart. documented in this encounter Plan of Treatment Scheduled Referrals Name Type Priority Associated Diagnoses Order S chedule REFERRAL PHYSICAL THERAPY Follow Up Routine Dizziness Or dered: 03/13/2022 documented as of this encounter Visit Diagnoses Diagnosis Schwannoma of nerve of head - Primary Cerebral ventriculomegaly Other conditions of brain NPH (normal pressure hydrocephalus) (HCC ) Idiopathic normal pressure hydrocephalus (INPH) Dizziness Dizziness and giddiness documented in this encounter Care Teams Color Maker Dyer Relationship Specialty Start Date End Date Sanjeev Castro MD PCP - General 04/25/21 [address] [place] [address] [facility] PCP - Primary [facility] [place] [address] [place] [address] documented as of this encounter
--- OUTSIDE RECORDS SUMMARY | 2022-05-21 13:43 | XMS_ITS | Encounter Summary ---
:1955 Author Organization [facility] Address [address] [place] [address] Care Team Providers Name Role Phone Sanjeev Castro MD Primary Care Provider Encounter Details Date Type Department Care Team Description 06/01/2021 Travel Social History Tobacco Use Types Packs/Day [...] on filedocumented in this encounter Care Teams Faculty Research Physician Relationship Specialty Start Date End Date Sanjeev Castro MD PCP - General 04/25/21 [facility] [place] [address] documented as of this encounter
--- OUTSIDE RECORDS SUMMARY | 2022-05-21 13:43 | XMS_ITS | Encounter Summary ---
:1955 Author Organization [facility] Address [address] [place] [address] Care Team Providers Name Role Phone Sanjeev Castro MD Primary Care Provider Reason for Referral (Routine) - Closed Specialty Diagnoses / Procedures Referred By Contact Refer red To Contact Diagnoses NPH (normal pressure hydrocephalus) (HCC) Schwannoma of nerve of head Brandi Ortiz PA-C Procedures MRI BRAIN [facility] [address] [address] Referral ID Status Reason Start Date Expiration Date Visits Requ ested Visits Authorized [id number] Closed 05/15/2021 1 1 Reason for Visit Reason Comments Consultation Encounter Details Date Type Department Care Team Description 05/15/2021 Office Visit [facility] Brandi Ortiz, NPH (n ormal pressure hydrocephalus) (HCC) (Primary Dx); Neurology - Safia MASON Schwannoma of nerve of head; [facility] Vitamin B12 deficiency [address] [phone] Social History Tobacco Use Types Packs/Day Years [...] / COVID-19? documented as of this encounter Progress Notes Brandi Ortiz PA-C - 05/15/2021 12:45 PM CDT Images from the original note were not included. [facility] [address] [place] [address], [address] [place] [address] Neurology Initial Note / Consultation 05/15/21 Assessment and Plan: 1. NPH (normal pressure hydrocephalus) (HCC) Diagnosed in 2015 when he was diagnosed with his Schwannoma and NPH as well Worsening somnolence, gait and incontinence now Imaging until 2019 stable , no imaging since Will get MRI brain w/wo due to history of schwannoma and prostate cancer 2. Schwannoma of nerve of head Last imaging in 2019 MRI brain w/wo as above May need referral to Neurosurgery 3. Vitamin B12 deficiency Patients last B12 level in [facility] was 154 Recheck MMA and B12 The differential diagnosis, prognosis, pathophysiology, etiology, and treatment options, side effects and complications and the relative benefits of treatment options were discussed in detail with the patient and family. I will see the patient back in follow up in 4 weeks . If I can provide any further information or answer any questions in the interim, the patient or family is welcome to contact me. Chief Complaint: Consultation History of Present Illness: HPI: Marin Nguyễn is a 65 y.o. male who presents for a neurological consultation for evaluation of NPH at the request of Sanjeev Castro MD Patient was diagnosed with NPH in 2015 [...] Has trouble with immediate short term memory. 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 Patient has started feeling numbness/weakness on left side. Feels like hecan sleep all the time. HX of prostate cancer with radaition Patient has increased urgency and incontinent of bowels. Two episodes in the past 4 months. Denies any urinary issues. Past Medical History: Past Medical History: Diagnosis Date ??? Essential hypertension 12/07/2014 ??? 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 Stable from MRI in November 2019. ??? Normal pressure hydrocephalus (HCC) 09/05/2015 ??? Prostate cancer (HCC) 12/07/2014 ??? Pure hypercholesterolemia 12/07/2014 ??? RLS (restless legs syndrome) 12/07/2014 Past Surgical History: No past surgical history on file. Medications: No current outpatient medications on file. Allergy: Yellow dye and Kiwi Family History: Family History Problem Relation Name Age of Onset ??? Kidney Disease Mother ??? High Blood Pressure Mother ??? Alzheimer's Disease Father ??? Obesity Sister Social History: Social History Tobacco Use ??? Smoking status: Former Smoker Quit date: 1974 Years since quittin.7 ??? Smokeless tobacco: Never Used Vaping Use ??? Vaping Use: Never used Substance Use Topics ??? Alcohol use: Not Currently Alcohol/week: 1.0 standard drink Types: 1 Standard drinks or equivalent per week Comment: very rarely ??? Drug use: Never Review of System: Except as described above, review of systems is negative for any constitutional, HEENT, respiratory,cardiovascular, genitourinary, gastrointestinal, hematologic, endocrinologic, psychiatric, integument, musculoskeletal, and neurologic disorders. A comprehensive review of 10 systems was performed and found to be negative except as described in this note CONSTITUTIONAL: negative for fever, chills, change in weight INTEGUMENTARY/SKIN: no rash or obvious new lesions ENT/MOUTH: no sore throat, new sinus pain or nasal drainage, no neck mass noted RESP: No pleuretic pain, No cough, no hemoptysis, No SOB CV: negative for chest pain, palpitations or peripheral edema GI: no nausea, vomiting, change in stools : no dysuria or hematuria MUSCULOSKELETAL: no myalgias, arthralgias or join efffusion ENDOCRINE: no history of polyuria, polydyspsia or symptoms of thyroid dysfunction PSYCHIATRIC: no change in mood stable LYMPHATIC: no new lymphadenopathy HEME: no bleeding or easy bruisability NEURO: see HPI Physical Exam: There were no vitals taken for this visit. GENERAL: The patient is alert, cooperative and in no distress. HEENT: Head is atraumatic and normocephalic. Hearing is normal. Mucosa is intact. Neck is supple. Facial movement and facial sensation is normal. LUNGS: Clear to auscultation, without adventitial sounds. CARDIOVASCULAR SYSTEM: Regular rate, no murmur. Pulses are normal. GASTROINTESTINAL: Abdomen is soft and nontender, with no hepatosplenomegaly or masses palpated. SKIN: No rash or lesions are noted. EXTREMITIES: No kyphoscoliosis or deformities are seen. Range of movement of the neck and low back is full in all directions. Range of motion of the shoulders is full. NEUROLOGIC EXAMINATION MENTAL STATUS: The patient is [...] dysmetria is noted, and coordination is normal. Romberg is negative. GAIT: Normal, able to stand without assistance Data: ROUTINE LABS [facility] 03/13/21 Vitamin B12: 154 Vitamin D level: 25.8 IMAGING: All imaging studies were reviewed personally [...] Amaury Licona @ Dec 02 2019 ??2:38PM Brandi Ortiz PA-C 05/15/2021 TIME: I spent 60 minutes on the date of the encounter with this patient consisting of activities before, during, and after the encounter including time spent: ?? Preparing to see the patient including review of the chart, tests, and/or outside records. ?? Reviewing and verifying information regarding the chief complaint and [facility]. ?? Obtaining history [...] and/or procedures, and documenting in the chart. I Brandi Ortiz acted as a scribe for Dr. Ho I, Dr. Ho, agree with the above as scribed by Brandi Ortiz PA-C. This is a true an accurate recordof my work. Ta Ho MD documented in this encounter Plan of Treatment Not on filedocumented as of this encounter Procedures Procedure Name Priority Date/Time Associated Comments Diagnosis METHYLMALONIC ACID, Routine 05/15/2021 12:44 Vitamin B12 Resu lts for this SERUM ([facility]) PM CDT deficiency procedure ar e in the results section. VITAMIN B12 ([facility]) Routine 05/15/2021 12:44 Vitamin B12 Re sults for this PM CDT deficiency procedure are i n the results section. documented in this encounter Results MRI [...] in appeara nce as compared to the 2020 MRI. WHITE [...] 2019 MRI. SIGNED BY: Roger Avery M.D. Narrative [...] stable in appearance as compared to the 2019 MRI. WHITE [...] stable in appearance as compared to the 2019 MRI. WHITE [...] Avery M.D. Ta Ho MD MRI ORDERABLE METHYLMALONIC ACID, SERUM ([facility]) (05/15/2021 12:44 PM CDT) Patholo gist Method Time Signature Methylmalonic Acid 94 0 - 378 [facility] 1 ([facility]) nmol/L Acid FDA Comment [facility] 1 Disclaimer ([facility]) Comment: This test was developed and its performa nce characteristics determined by [facility]. It has not been c leared or approved by the Food and Drug Administration. Specimen Anatomical Collection Method Collection Time Receive d Time (Source) Location / / Volume Laterality Blood 05/15/2021 12:44 05/14/2021 PM CDT 11:00 PM CDT Narrative [facility] 1 - 05/22/2021 11:06 PM CDT Performed at: ??01 - [facility] [address] ??[id number] Puff Ironer: Kei Conn MD, Phone: ??[phone] Brandi Ortiz PA-C [facility] ORDERABLES Performing Organization Address City/State/ZIP Code Phon e Number [facility] 1 (ABNORMAL) VITAMIN B12 ([facility]) (05/15/2021 12:44 PM CDT) Analysis Performed At Patho logist Time Signature Vitamin B12 1,741 (H) 232 - [facility] 2 ([facility]) 1,245 pg/mL Specimen Anatomical Collection Method Collection Time Receive d Time (Source) Location / / Volume Laterality Blood 05/15/2021 12:44 05/14/2021 PM CDT 11:00 PM CDT Narrative [facility] 2 - 05/22/2021 11:06 PM CDT Performed at: ??02 - [facility] [address] ??[id number] Puff Ironer: Jim Medrano MD, Phone: ?? [phone] Brandi Ortiz PA-C [facility] ORDERABLES Performing Organization Address City/State/ZIP Code Phon e Number [facility] 2 documented in this encounter Visit Diagnoses Diagnosis NPH (normal pressure hydrocephalus) (HCC ) - Primary Idiopathic normal pressure hydrocephalus (INPH) Schwannoma of nerve of head Vitamin B12 deficiency Other B-complex deficiencies NPH (normal pressure hydrocephalus) (HCC ) Idiopathic normal pressure hydrocephalus (INPH) Schwannoma of nerve of head documented in this encounter Care Teams Helpdesk Administrator Relationship Specialty Start Date End Date Sanjeev Castro MD PCP - General 04/25/21 [address] [place] [address] documented as of this encounter
--- OUTSIDE RECORDS SUMMARY | 2022-05-21 13:44 | XMS_ITS | Continuity of Care Document ---
:1955 Author Organization [facility] Care Team Providers Name Role Phone [facility] Unavailable Unavailable Problems Combined list of problems from Department of Defense and [facility] Affairs facilities. It does not include entries that were removed or entered in error. Problem Status Onset Problem Date of Comments Source Date Type Resolution Personal History Active Condition [place] Colonic Polyps 010 [facility] Alkaline Active [place] Phosphatase [facility] Increased Allergic rhinitis [place] due to pollen [facility] (ICD-9-CM 477.0) Bloating Active [place] [facility] Calculus Of Active Condition [place] Ureter [facility] Chronic Low Back Active Condition [place] Pain [facility] Dysthymia (SNOMED [place] [id number]) [facility] Esophageal Reflux Active [place] (ICD-9-CM 530.81) [facility] Foot Pain Active [place] [facility] Frequency Active [place] [facility] Hyperlipidemia Active [place] [facility]pertension * Active Condition [place] (ICD-9-CM 401.9) [facility] Irradiation Active Condition [place] cystitis (SNOMED [facility] [place] [id number]) Leukoplakia, Oral Active [place] [facility] Mild cognitive Active [place] disorder [facility] Pain in joint Active [place] involving hand [facility] Personal History Active [place] of Exposure to [facility] S Agent [place] Prostate Cancer Active Condition Nov 11 8 [place] (ICD-9-CM 185.) Entered By: [facility] JASON PACHECO Comment: Radical Prostatectomy 2001 [facility] Restless Legs Active Condition [place] [facility] Urinary Active [place] Incontinence [facility] Cough Inactive Condition 08/13/2012 [place] [facility] Cramp of limb Inactive Condition 08/13/2012 Nov 15, 2008 [place] Entered By: [facility] YAHIR AGUILAR Comment: legs Depressive Inactive Condition 08/13/2012 [place] Disorder NOS [facility] Dermatitis * Inactive Condition 08/13/2012 RYAN ORTIZ (ICD-9-CM 692.9) [facility] HEMATURIA NOS Inactive Condition 08/13/2012 [place]ARTH[place] [facility] Hypercalcemia Inactive Condition 05/22/2010 KARTHIK APOLIS [facility] Hyperuricemia Inactive Condition 08/13/2012 KARTHIK [place] [facility] Memory loss Inactive Condition 08/13/2012 Jun 08, 2008 [place] ROGEL Entered By: [facility] YAHIR AGUILAR Comment: subjective Nephrolithiasis Inactive Condition 08/13/2012 [place] [facility] Nocturia Inactive Condition 08/13/2012 [place] [facility] Pain in joint Inactive Condition 08/13/2012 Jun 08, 2008 [place] involving Entered By: [facility] shoulder region YAHIR AGUILAR Comment: left Screening for Inactive Condition 08/13/2012 KARTHIK LEALLIS Malignant [facility] Neoplasms of colon Vitamin B 12 Inactive Condition 08/13/2012 [place] Deficiency [facility] Medications Combined list of outpatient medications from Department of Defense and Veterans Affairs facilities. Medications provided include 1) outpatient medications from the last 15 months, and 2) patient-reported medications. Medication Details Route Status Patient Prescription Prescription Last Ordering Order Source Instructions Expires Number Dispense Provider Date Date ALBUTEROL Active [id number] LOPEZ, armac SULFATE HFA 2 2021 y Data (albuterol Transac sulfate), tion 90 MCG, HFA Service AER AD, Facilit INHALATION, y [place], 8.5 g CANISTER ATORVASTATI Active [id number] BOLIVAR, 6/ Pharmac N CALCIUM 1 2020 y Data (atorvastat Transac in tion calcium), Service 20 MG, Facilit TABLET, y ORAL, [facility], 1000 ea. BOTTLE ATORVASTATI Active [id number] SHAQRA, 03/30 / Pharmac N CALCIUM 2 2021 y Data (atorvastat Transac in tion calcium), Service 20 MG, Facilit TABLET, y ORAL, LUPIN PHARMACEU, 500 ea. BOTTLE ATORVASTATI Active [id number] BOLIVAR, 05/20 1/ Pharmac N CALCIUM 1 2020 y Data (atorvastat Transac in tion calcium), Service 20 MG, Facilit TABLET, y ORAL, LUPIN PHARMACEU, 500 ea. BOTTLE Benzonatate Active [id number] SHAQRA, 12/13 / Pharmac (Epic 2 2021 y Data [employer]) Transac 100 CAPSULE tion in 1 BOTTLE Service Facilit y CALCIUM TAKE TWO ORALLY ACTIVE AGUILAR,SUSAN 05/21/ [place] 250MG/VITAM TABLETS C J 2010 [place] V A IN D 125UNT BY MOUTH HCS TAB TWICE A DAY CHOLECALCIF TAKE TWO ORALLY ACTIVE AGUILAR,SUSAN 10/03 / [place] SONU 25MCG TABLETS C J 2011 [place] [facility] (1,000UNIT) BY MOUTH HCS TAB EVERY DAY DIAZEPAM Active [id number] AVI, 03/01/ rmac (DIAZEPAM), 2 2021 y Data 5MG, Transac TABLET, tion ORAL, IVAX Service PHARMACEUT, Facilit 100 ea. y BOTTLE FLUOXETINE Active [id number] BOLIVAR, 03/21 / Pharmac HCL 2020 y Data (FLUOXETINE Transac HCL), 20MG, tion CAPSULE, Service ORAL, Facilit AUROBINDO y PHARM, 100 ea. BOTTLE FLUOXETINE Active [id number] BOLIVAR, 04/14 / Pharmac HCL 1 2020 y Data (FLUOXETINE Transac HCL), 20MG, tion CAPSULE, Service ORAL, Facilit AUROBINDO y PHARM, 100 ea. BOTTLE FLUOXETINE Active [id number] BOLIVAR, 05/09 / Pharmac HCL 2020 y Data (FLUOXETINE Transac HCL), 20MG, tion CAPSULE, Service ORAL, Facilit AUROBINDO y PHARM, 100 ea. BOTTLE FLUOXETINE Active [id number] BOLIVAR, 06/09 / Pharmac HCL 1 2020 y Data (FLUOXETINE Transac HCL), 20MG, tion CAPSULE, Service ORAL, Facilit AUROBINDO y PHARM, 100 ea. BOTTLE FLUOXETINE Active [id number] BOLIVAR, 07/07 / Pharmac HCL 2020 y Data (FLUOXETINE Transac HCL), 20MG, tion CAPSULE, Service ORAL, Facilit AUROBINDO y PHARM, 100 ea. BOTTLE FLUOXETINE Active [id number] BOLIVAR, 08/03 / Pharmac HCL 2020 y Data (FLUOXETINE Transac HCL), 20MG, tion CAPSULE, Service ORAL, Facilit AUROBINDO y PHARM, 100 ea. BOTTLE GABAPENTIN TAKE ACTIVE RICKY,Navid 04/23/ [place],ORAL [place] A 2015 [facility] LISINOPRIL Active [id number] SHAQRA, Pharmac (lisinopril 2 2021 y Data ), 10 MG, Transac TABLET, tion ORAL, LUPIN Service PHARMACEU, Facilit 1000 ea. y BOTTLE LISINOPRIL Active [id number] SHAQRA, Pharmac (lisinopril 2 2021 y Data ), 10 MG, Transac TABLET, tion ORAL, LUPIN Service PHARMACEU, Facilit 1000 ea. y BOTTLE LISINOPRIL Active [id number] BOLIVAR, 03/21 Pharmac (lisinopril 1 2020 y Data ), 10 MG, Transac TABLET, tion ORAL, LUPIN Service PHARMACEU, Facilit 1000 ea. y BOTTLE LISINOPRIL Active [id number] BOLIVAR, 04/14 Pharmac (lisinopril 1 2020 y Data ), 10 MG, Transac TABLET, tion ORAL, LUPIN Service PHARMACEU, Facilit 1000 ea. y BOTTLE LISINOPRIL Active [id number] BOLIVAR, 05/09 Pharmac (lisinopril 1 2020 y Data ), 10 MG, Transac TABLET, tion ORAL, LUPIN Service PHARMACEU, Facilit 1000 ea. y BOTTLE LISINOPRIL Active [id number] BOLIVAR, 06/09 Pharmac (lisinopril 1 2020 y Data ), 10 MG, Transac TABLET, tion ORAL, LUPIN Service PHARMACEU, Facilit 1000 ea. y BOTTLE LISINOPRIL Active [id number] BOLIVAR, 07/07 Pharmac (lisinopril 1 2020 y Data ), 10 MG, Transac TABLET, tion ORAL, LUPIN Service PHARMACEU, Facilit 1000 ea. y BOTTLE LISINOPRIL Active [id number] BOLIVAR, 08/03 Pharmac (lisinopril 1 2020 y Data ), 10 MG, Transac TABLET, tion ORAL, LUPIN Service PHARMACEU, Facilit 1000 ea. y BOTTLE LISINOPRIL Active [id number] BOLIVAR, 08/31 / Pharmac (lisinopril 2 2021 Data ), 10 MG, Transac TABLET, tion ORAL, LUPIN Service PHARMACEU, Facilit 1000 ea. y BOTTLE MECLIZINE Active [id number] SHAQRA, 03/18/ Pharmac HCL 2 2021 y Data (meclizine Transac HCl), 25 tion MG, TABLET, Service ORAL, Facilit RISING y PHARM, 100 ea. BOTTLE MECLIZINE Active [id number] AVI, 03/01/ Ph armac HCL 2 2021 y Data (meclizine Transac HCl), 25 tion MG, TABLET, Service ORAL, Facilit RISING y PHARM, 100 ea. BOTTLE PREDNISONE Active [id number] LOPEZ, 12/12/ P harmac (prednisone 2 2021 Data ), 20 MG, Transac TABLET, tion ORAL, Service NOVITIUM Facilit PHARMA, 100 y ea. BOTTLE Allergies, Adverse Reactions, Alerts Combined list of allergies from Department of Defense and Veterans Affairs facilities. It does not include entries that were removed or entered in error. Substance Category Reaction Severity Reaction Status Date Comments S ource type Reported CATS Propensity Propensity active [place] adverse to adverse 1 [place] [facility] reaction reaction HCS (finding) (finding) DOGS Propensity Propensity active [place] to adverse to adverse 1 [place] [facility] reaction reaction HCS (finding) (finding) DUST Propensity Propensity active [place] to adverse to adverse 1 [place] [facility] reaction reaction HCS (finding) (finding) OXYBUTYNIN Propensity Xerostomia Propensity active [place] CHLORIDE to adverse to adverse 0 L IS [facility] reactions reactions HCS to drug to drug (finding) (finding) TREES Propensity Propensity active [place] to adverse to adverse 1 LI S [facility] reaction reaction HCS (finding) (finding) Immunizations Combined list of available immunizations from the Department of Defense and Veterans Affairs facilities. 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 zoster live 10/07/ KIND, () Not zoster DoD 2015 Given live INFLUENZA, complet [place] UNSPECIFIED 2013 ed [facility] PNEUMOCOCCAL complet [facility] and [place] POLYSACCHARID 2013 ed [place], [place] [facility] E PPV23 [id number] HC S [id number] INFLUENZA, complet [place] UNSPECIFIED 2010 ed [facility] [place] [facility] INFLUENZA, complet [place] UNSPECIFIED 2009 ed [place] [facility] NOVEL complet [employer] [place] INFLUENZA-H1N 2008 ed [place] [facility] -, ALL HCS FORMULATIONS INFLUENZA complet [place] (HISTORICAL) 2006 ed O [facility] TD(ADULT) complet [place] UNSPECIFIED 2006 ed [facility] [place] [facility] Encounters Combined list of: 1) Encounters from Department of Veterans Affairs facilities going back up to the last 18 months. 2) Encounters from the Department of Defense facilities going back up to 280 months. Location Location Encounter Encounter Reason Attending ADM DC Stat us Disposition Source Details Type Number For Provider Date Date Visit Outpatient [id number] Jcarlos SIMPSON 12/07 [place] Encounter [id number] [facility] Social History Combined list of available smoking, tobacco, and other social history from Department of Defense andVeterans Affairs facilities. Social History Type Response Date Comment Source Tobacco smoking status FORMER TOBACCO USER 7Y 10/01/2017 [facility] NHIS OR GREATER History of tobacco use FORMER TOBACCO USER 7Y 11/28/2015 [facility] OR GREATER History of tobacco use FORMER TOBACCO USER 7Y 02/07/2014 [facility] OR GREATER History of tobacco use LIFETIME NON-TOBACCO 07/31/2011 [facility] USER History of tobacco use LIFETIME NON-TOBACCO 11/12/2007 [facility] USER This section is an [facility] empty social history section.
--- OUTSIDE RECORDS SUMMARY | 2022-05-21 13:44 | XMS_ITS | Clinical Summary ---
:1955 Author Organization [facility] [facility] [place] [address] Care Team Providers Name Role Phone Sanjeev Castro MD Primary Care Provider [phone] Lilliam Bucio MD Unavailable Araceli Sanchez NP Unavailable Allergies Active Allergy Reactions Severity Noted Date Comments Cats (Fur, Dander, *Unknown 09/18/2010 Saliva) House Dust *Unknown 09/18/2010 Kiwi Edema 01/08/2017 Oxybutynin Chloride Other - Describe In 01/01/2010 Comment Field Yellow Dye Angioedema High 04/09/2017 The yellow dye in Mtn Dew Medications Medication Sig Dispensed Refills Start End Status Date Date naproxen (ALEVE) 220 mg Take 2 0 01/09/20 Active tabletIndications: tablets by 17 Achilles tendinitis of mouth 2 times right lower extremity daily with meals. diclofenac 1 % topical Apply 100 g 2 05/11/20 Active (VOLTAREN) topically to 19 gelIndications: Achilles affected tendinitis of right area(s) 4 lower extremity, times daily. Retrocalcaneal bursitis, right ondansetron (ZOFRAN) 8 TAKE ONE 30 tablet 10 09/23/19 Active mg tabletIndications: TABLET BY 20 Nausea MOUTH EVERY EIGHT HOURS NEEDED FOR NAUSEA/VOMITI NG. cholecalciferol (VITAMIN TAKE TWO 0 Active D) 1,000 unit capsule TABLETS BY MOUTH EVERY DAY cholecalciferol (Vitamin Take 1 0 03/14/20 Active D-3) 2,000 unit Capsule 21 capsuleIndications: (2,000 units) Vitamin D deficiency by mouth once daily. cyanocobalamin (Vitamin Take one 0 06/27/20 Active B-12) 5,000 mcg every other 21 sublingual day tabletIndications: B12 deficiency meclizine (ANTIVERT) 25 Take 1 Tablet 15 Tablet 0 03/15/20 Active mg tabletIndications: (25 mg) by 22 Vertigo mouth 3 times daily if needed for Vertigo. diazePAM (VALIUM) 5 mg Take 5 mg by 0 02/29/20 Active tablet mouth 2 times 22 daily if needed. meclizine (ANTIVERT) three times a 0 02/29/20 Active 12.5 mg as half tablet day 22 atorvastatin (LIPITOR) Take 1 Tablet 90 Tablet 3 03/28/20 Active 20 mg tabletIndications: (20 mg) by 22 Pure mouth at hypercholesterolemia bedtime. lisinopriL (PRINIVIL; Take 1 Tablet 90 Tablet 3 04/24/20 Active ZESTRIL) 20 mg (20 mg) by 22 tabletIndications: mouth once Essential hypertension daily. lisinopriL (PRINIVIL; Take 1 Tablet 30 Tablet 11 03/27/2002/16 Discontinued ZESTRIL) 10 mg (10 mg) by 22 022 (*Me dication tabletIndications: mouth once adjustment) Essential hypertension daily. Active Problems Problem Noted Date Anxiety 12/08/2019 Primary osteoarthritis of right knee 01/20/2019 Overview: January 2019 MRI showing meniscus and osteo arthritis changes. Apr 2019: right knee cortisone injectio n by Dr. Storm. 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 Stable from MRI in November 2019. 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 Moderate episode of recurrent major depressive disorde r 12/07/2014 RLS (restless legs syndrome) 12/07/2014 Pure hypercholesterolemia 12/07/2014 Gastroesophageal reflux disease without esophagitis Essential hypertension 12/07/2014 Prostate cancer 12/07/2014 Resolved Problems Problem Noted Date Resolved Date Allergic rhinitis, cause unspecified 12/07/201403/2017 Encounters Date Type Specialty Care Team Description 05/09/2022 Telephone Debora Perkins, Lab (Ok to perform lab DO due 06/05 early on 05/23/2022?) 04/24/2022 Ancillary Procedure 04/24/2022 Office Visit Debora Perkins, Follow Up (BP ) DO 04/24/2022 Travel 04/10/2022 Ancillary Procedure 04/10/2022 Travel 03/27/2022 Office Visit Debora Perkins, Medicare A NNUAL DO (subsequent) Vi sit (66 years old) 03/27/2022 Travel 03/18/2022 Telephone Sanjeev Castro Questions (ref erral) MD Jean Paul 03/15/2022 Telephone Sanjeev Castro Medication Man agement MD Jean Paul 03/14/2022 Telephone Sanjeev Castro Refill Request (met MD Jean Paul meclizine 25 mg and diazapam 5 mg) 03/12/2022 Telephone Sanjeev Castro Questions (MRI ) MD Jean Paul 03/11/2022 Ancillary Procedure 03/11/2022 Travel 03/01/2022 Telephone Sanjeev Castro Referral (Fax ) MD Jean Paul 02/28/2022 Ancillary Procedure 02/28/2022 Office Visit Sanjeev Castro [facility] F/U ( 02/27 MD Jean Paul vertigo ) 02/28/2022 Travel from Last 3 Months Immunizations Name Administration Dates Next Due Influenza A (H1N1), Inactivated 08/16/2009 Influenza Virus, Unspecified 07/18/2014, 05/21/2011, 010 Pneumococcal Poly,23-Valent (Pneumovax) 07/18/2014 TD, UNSPECIFIED 11/16/2006 Tdap 08/18/2014 Family History Medical History Relation Name Comments Stroke Brother 1 Other Brother 2 Colon surgery; u nsure if cancerous Alzheimer's disease Father Kidney disease Mother Kidney disease Sister Relation Name Status Comments Brother 1 Brother 2 Father Mother Sister Social History Tobacco Use Types Packs/Day Years Used Date Current Some Day Smoker Cigars 0.5 1 08/1971 - 08/18/1972 Smokeless Tobacco: Never Used Tobacco Cessation: Ready to Quit: No; Co unseling Given: Yes Comments: occ cigar Alcohol Use Standard Drinks/Week Comments No 0 (1 standard drink = 0.6 oz pure alcoho l) Sex Assigned at Date Recorded Not on file COVID-19 Exposure Response Date Recorded In the last 10 days, have you been in contact with No / Unsu re 04/24/2022 1:50 PM CDT someone who was confirmed or suspected to have Coronavirus/COVID-19? Obstetrics History Last Filed Vital Signs Vital Sign Reading Time Taken Comments Blood Pressure 150/85 04/24/2022 1:58 PM CDT Pulse 72 04/24/2022 1:58 PM CDT Temperature 36.9 ??C (98.5 ??F) 12/07/2021 2:43 PM CDT Respiratory Rate 20 04/02/2021 1:57 PM CDT Oxygen Saturation 96% 04/24/2022 1:58 PM CDT Inhaled Oxygen Concentration - - Weight 94.9 kg (209 lb 3.2 oz) 04/24/2022 1:58 PM CDT Height 161.9 cm (5' 3.75) 03/27/2022 12:50 PM CDT Body Mass Index 36.19 03/27/2022 12:50 PM CDT Plan of Treatment Upcoming Encounters Date Type Specialty Care Team Description 05/22/2022 Office Visit Pradip Lawton MD [address] [place], [place] [address] (Wo rk) 05/23/2022 Orders Only Lab, [place] 05/23/2022 Nurse/Clinic Staff Only 07/24/2022 Office Visit Debora Perkins DO [address] [facility] [place] [address] (Wo rk) Health Maintenance Due Date Last Done Comments COVID-19 vaccine series (#1) 1955 Zoster (shingles) series for age 1006/05/2003 50+ (1 of 2) Pneumococcal series for age 65+ (2 07/18/2015 07/18/2014 - PCV) Influenza for age 65+ 04/18/2022 07/18/2014, 05/21/2011, 05/22/2010, Additional history exists BMI (ht and wt on same day) for 03/27/2023 03/27/2022, 03/18, age 18+ 03/13/2021, Additional history exists Depression screening for age 12+ 03/27/2023 03/27/2022, 04/2021, 03/16/2021, Additional history exists Medicare Wellness for age 65+ 03/27/2023 03/27/2022, 2020, 09/23/2019 Tetanus booster 08/18/2024 08/18/2014, 11/16/2006 Colonoscopy through age 75 02/06/2025 02/06/2015 Lipids for age 45-75 03/27/2027 03/27/2022, 06/27/2021, 03/13/2021, Additional history exists Tdap Completed 08/18/2014 Hepatitis C screening for age Completed 09/23/2019 18-79 AAA screening age 55-77 Completed 04/10/2022 Procedures Procedure Name Priority Date/Time Associated Diagnosis Comme nts XR KNEE 3 VIEWS Routine 04/24/2022 2:34 PM Chronic pain of rig ht Results for this RIGHT CDT knee procedure are i n the results section. US ABD AORTA Routine 04/10/2022 1:47 PM Screening for AAA Resu lts for this SCREENING CDT (abdominal aortic procedure are in aneurysm) the results section. PSA TOTAL SCREEN Routine 03/27/2022 1:50 PM Prostate cancer Re sults for this CDT screening procedure are i n the results section. LIPID PANEL W Routine 03/27/2022 1:50 PM Hyperlipidemia, Resul ts for this REFLEX MEASURED CDT unspecified procedure ar e in LDL hyperlipidemia type the resu lts section. BASIC METABOLIC Routine 03/27/2022 1:50 PM Essential hypertens ion Results for this PANEL CDT procedure are i n the results section. MR HEAD BRAIN WO Routine 03/11/2022 3:20 PM Dizziness Results for this CDT Unstable gait procedure are in Frequent falls the results Confusion section. Intracranial neoplasm (HC) Normal pressure hydrocephalus (HC) CT HEAD BRAIN WO CHRIS 02/28/2022 12:42 Dizziness Results for this PM CDT procedure are i n the results section. from Last 3 Months Results XR KNEE 3 VIEWS RIGHT (04/24/2022 2:34 PM CDT) Anatomical Region Laterality Modality KNEES, KNEE R Computed Radiography Specimen (Source) Anatomical Collection Method Collection Time Re ceived Time Location / / Volume Laterality 04/24/2022 2:38 PM CDT Narrative 04/24/2022 2:38 PM CDT For Patients: ??As a result of the Cures Act, medical imaging exams and procedure report s are released immediately into your [facility] medical record. ??You may view this report before your referring provider. ??If you have questions, please contact your health care provider. Indication: Knee pain Technique: Right knee three views Comparison: 01/20/2019 Findings: Mild medial compartment narrowing. No fr acture. Mild patellofemoral spurring. No synovitis. Impression: Mild degenerative joint disease, similar to the prior study. Dictated by Amaury Barillas MD @ Sep ??2021 ??2:38PM (Electronically Signed) ?? Procedure Note Amaury Barillas MD - 04/24/2022For matting of this note might be different from the original. For Patients: As a result of the Cures Act, medical imaging exams and procedure reports are released immediately into your electronic medical record. You may view this report before your referring provider. If you have questions, please contact yo health care provider. Indication: Knee pain Technique: Right knee three views Comparison: 01/20/2019 Findings: Mild medial compartment narrowing. No fr acture. Mild patellofemoral spurring. No synovitis. Impression: Mild degenerative joint disease, similar to the prior study. Dictated by Amaury Barillas MD @ Apr 24 2:38PM (Electronically Signed) Debora Zeenat Maddie DO GENERAL IMAGING US ABD AORTA SCREENING [[id number]] (04/10/2022 1:47 PM CDT) Anatomical Region Laterality Modality Abdomen, AORTA Ultrasound Specimen (Source) Anatomical Collection Method Collection Time Re ceived Time Location / / Volume Laterality 04/10/2022 1:50 PM CDT Impressions 04/10/2022 1:50 PM CDT No evidence of abdominal aortic aneurysm. Dictated by Amaury Barillas MD @ Apr 10 2 022 ??1:50PM (Electronically Signed) ?? Narrative 04/10/2022 1:50 PM CDT For Patients: ??As a result of the Cures Act, medical imaging exams and procedure report s are released immediately into your [facility] [employer] medical record. ??You may view this report before your referring provider. ??If you have questions, please contact your health care provider. INDICATION: Screening for AAA (abdominal aortic aneu rysm) COMPARISON: none TECHNIQUE: Troncoso scale and color Doppler images were acquired of the abdominal aorta and iliac arteries. FINDINGS: Sonographic imaging demonstrates no sign ificant atherosclerotic changes. Proximally, the aorta measures 2.1 x 2.3 cm in diameter, mid 1.6 x 2.0 cm, and distally tapers to a measurement of 1.7 x 1.5 cm. ??The common iliac arteries are patent a nd measure 1.0 x 1.4 cm on the right and 1.0 x 1.1 cm in diameter on the left. ??There are no suspicious periaortic masses. Procedure Note Amaury Barillas MD - 04/10/2022For matting of this note might be different from the original. For Patients: As a result of the Cures Act, medical imaging exams and procedure reports are released immediately into your electronic medical record. You may view this report before your referring provider. If you have questions, please contact yo health care provider. INDICATION: Screening for AAA (abdominal aortic aneu rysm) COMPARISON: none TECHNIQUE: Troncoso scale and color Doppler images were acquired of the abdominal aorta and iliac arteries. FINDINGS: Sonographic imaging demonstrates no sign ificant atherosclerotic changes. Proximally, the aorta measures 2.1 x 2.3 cm in diameter, mid 1.6 x 2.0 cm, and distally tapers to a measurement of 1.7 x 1.5 cm. The common iliac arteries are patent and measure 1.0 x 1. 4 cm on the right and 1.0 x 1.1 cm in diameter on the left. There are no suspicious periaortic masses. IMPRESSION: No evidence of abdominal aortic aneurysm . Dictated by Amaury Barillas MD @ Apr 10 2 022 1:50PM (Electronically Signed) Debora Perkins DO US (ABNORMAL) LIPID PANEL W REFLEX MEASURED LDL (03/27/2022 1:50 PM CDT) Patholo gist Method Time Signature CHOLESTEROL,TOTAL 234 (H) 100 - 199 03/28/2022 [facility] mg/dL 12:38 AM CDT LAB[facility]AT[facility]AL [facility]AT[facility] TRIGLYCERIDES 307 (H) <150 03/28/2022 [facility] mg/dL 12:38 AM CDT [facility] HDL CHOLESTEROL 35 (L) >40 mg/dL 03/28/2022 [facility] 12:38 AM CDT [facility] NON-HDL 199 (H) <145 03/28/2022 [facility] CHOLESTEROL mg/dl 12:38 AM CDT [facility] CHOL/HDL RATIO 6.69 (H) <4.50 03/28/2022 [facility] 12:38 AM CDT [facility] LDL CHOLESTEROL 138 (H) <=130 03/28/2022 [facility] mg/dL 12:38 AM CDT [facility] VLDL CHOLESTEROL 61 (H) <=30 03/28/2022 [facility] mg/dL 12:38 AM CDT [facility] PROVIDER ORDERED RANDOM 03/28/2022 [facility] STATUS 12:38 AM CDT [facility] Specimen Anatomical Collection Method / Collection Time Recei emmett Time (Source) Location / Volume Laterality Blood BLOOD SPECIMEN / Venipuncture / 03/27/2022 1:50 2021 1:53 Unknown Unknown PM CDT PM CDT Debora Perkins DO CHEMISTRY Performing Organization Address City/State/ZIP Code Phon e Number [facility] [address] [place] [address] LAB[facility]ATORY[facility] 2000 LABORATORY (ABNORMAL) BASIC METABOLIC PANEL (03/27/2022 1:50 PM CDT) P athologist Signature SODIUM 139 135 - 145 03/28/2022 [facility] mmol/L 12:37 AM CDT [facility] POTASSIUM 4.5 3.5 - 5.0 03/28/2022 [facility] mmol/L 12:37 AM CDT [facility] CHLORIDE 103 98 - 110 03/28/2022 [facility] mmol/L 12:37 AM CDT [facility] CO2,TOTAL 25 21 - 31 03/28/2022 [facility] mmol/L 12:37 AM CDT [facility] ANION GAP 11 5 - 18 03/28/2022 [facility] [place] 12:37 AM CDT [facility] GLUCOSE 87 65 - 100 03/28/2022 [facility] [place] mg/dL 12:37 AM CDT [facility] CALCIUM 10.0 8.5 - 10.5 03/28/2022 [facility] [place] mg/dL 12:37 AM CDT [facility] BUN 8 8 - 25 03/28/2022 [facility] mg/dL 12:37 AM CDT [facility] CREATININE 1.07 0.72 - 03/28/2022 [facility] 1.25 mg/dL 12:37 AM CDT [facility] BUN/CREAT RATIO 7 (L) 10 - 20 03/28/2022 [facility] [place] 12:37 AM CDT [facility] eGFR 76 (L) >90 03/28/2022 [facility] [place] mL/min/1.7 12:37 AM CDT LAB[facility]ATORY-[facility] 3m2 TRAL LABORATORY Comment: As of 2021, eGFR is calcu lated by the CKD-EPI creatinine equation without race adjustment. eGFR can be inf luenced by muscle mass, exercise, and diet. The reported eGFR is an estimation only and is only applicable if the renal function is stable. Specimen Anatomical Collection Method / Collection Time Recei emmett Time (Source) Location / Volume Laterality Blood BLOOD SPECIMEN / Venipuncture / 03/27/2022 1:50 2021 1:53 Unknown Unknown PM CDT PM CDT Debora Perkins DO CHEMISTRY Performing Organization Address City/State/ZIP Code Phon e Number [facility] [address] [place] [address] LABORATORY-CENTRAL 2000 LABORATORY PSA TOTAL SCREEN (03/27/2022 1:50 PM CDT) athologist Signature PSA TOTAL <0.03 <4.00 03/28/2022 [facility] (SCREEN) ng/mL 1:54 AM CDT LABORATORY-CENT RAL LABORATORY Specimen Anatomical Collection Method / Collection Time Recei emmett Time (Source) Location / Volume Laterality Blood BLOOD SPECIMEN / Venipuncture / 03/27/2022 1:50 2021 1:53 Unknown Unknown PM CDT PM CDT Narrative [facility] LABORATORY-CENTRAL LABORAT ORY - 03/28/2022 1:54 AM CDT [employer] PSA assay is a Chemiluminescent Microparticle Immunoassay(CMIA). Assay values ob tained with different assay methods ashley ot be used interchangeably due to differences in assay methods and reagent specificity. Debora Perkins DO LABORATORY Performing Organization Address City/State/ZIP Code Phon e Number [facility] [address] [place] [address] LABORATORY-CEN[facility]AL 2000 LABORATORY MR HEAD BRAIN WO (03/11/2022 3:20 PM CDT) Anatomical Region Laterality Modality BRAIN, HEAD Magnetic Resonance Specimen (Source) Anatomical Collection Method Collection Time Re ceived Time Location / / Volume Laterality 03/11/2022 4:57 PM CDT Impressions 03/11/2022 4:57 PM CDT 1. No acute infarction. No significant change compared to 12/02/2019. 2. Moderate chronic microvascular ischem ic changes and mild diffuse cerebral volume loss. 3. Stable presumed schwannoma involving the right trigeminal nerve cisternal segment and right Meckel cave. Dictated by Soy Phan MD @ 4:57:33 PM (Electronically Signed) Narrative 03/11/2022 4:57 PM CDT For Patients: ??As a result of the Century Cures Act, medical imaging exams and procedure report s are released immediately into your [facility] medical record. ??You may view this report before your referring provider. ??If you have questions, please contact your health care provider. INDICATION: Dizziness. Balance problems. TECHNIQUE: Multiplanar multisequence noncontrast MR images acquired through the brain. COMPARISON: MRI brain 12/02/2019. FINDINGS: Prominence of the ventricles and sulci c ompatible with mild diffuse cerebral volume loss. No midline shift or hydrocephalus. Stable patchy T2 FLAIR hyperintensities in the supratentorial white matter, t ypical for moderate chronic microvascula r ischemic changes. No intracranial hemorrhage or pathologic extra-axial fluid collection. No diffusion restriction to suggest acute infarction. No mass effect within the internal auditory canals. The 1.8 cm presumed schwannoma along the right trigeminal nerve cisternal segment with extension into the right Meckel cave, not significantly changed when accounting for limitations of noncontrast technique. The major arterial flow voids of the sku llbase are preserved. The globes are symmetric. Mild ethmoid sinus mucosal thickening. Very small right maxillary sinus retention cyst. The mastoid air cells are clear. Procedure Note Soy Phan MD - 03/11/2022F ormatting of this note might be different from the original. For Patients: As a result of the ntury Cures Act, medical imaging exams and procedure reports are released immediately into your electronic medical record. You may view this report before your referring provider. If you have questions, please contact [facility] care provider. INDICATION: Dizziness. Balance problems. TECHNIQUE: Multiplanar multisequence noncontrast MR images acquired through the brain. COMPARISON: MRI brain 12/02/2019. FINDINGS: Prominence of the ventricles and sulci c ompatible with mild diffuse cerebral volume loss. No midline shift or hydrocephalus. Stable patchy T2 FLAIR hyperintensities in the supratentorial white matter, typical for moderate chronic microvascular ischemic changes. No intracranial hemorrhage or pathologic extra-axial fluid collection. No diffusion restriction to suggest acute infarction. No mass effect within the internal auditory canals. The 1.8 cm presumed schwannoma along the right trigeminal nerve cisternal segment with extension into the right Meckel cave, not significantly changed when accounting for limitations of noncontrast technique. The major arterial flow voids of the sku llbase are preserved. The globes are symmetric. Mild ethmoid sinus mucosal thickening. Very small right maxillary sinus retention cyst. The mastoid air cells are clear. IMPRESSION: 1. No acute infarction. No significant c hange compared to 12/02/2019. 2. Moderate chronic microvascular ischem ic changes and mild diffuse cerebral volume loss. 3. Stable presumed schwannoma involving the right trigeminal nerve cisternal segment and right Meckel cave. Dictated by Soy Phan MD @ 4:57:33 PM (Electronically Signed) Sanjeev Castro MD MR CT HEAD BRAIN WO (02/28/2022 12:42 PM CDT) Anatomical Region Laterality Modality HEAD, BRAIN Computed Tomography Specimen (Source) Anatomical Collection Method Collection Time Re ceived Time Location / / Volume Laterality 02/28/2022 12:54 PM CDT Impressions 02/28/2022 12:54 PM CDT No significant change from the prior exams. Please note that all CT scans at this [facility] use dose modulation, iterative reconstruction, and/or weight-based dosing when appropriate to reduce radiation dose to as low as reasonably achievable. Dictated by Amaury Barillas MD @ 02/28/2022 12:54:48 PM (Electronically Signed) Narrative 02/28/2022 12:54 PM CDT For Patients: ??As a result of the Cures Act, medical imaging exams and procedure report s are released immediately into your [facility] medical record. ??You may view this report before your referring provider. ??If you have questions, please contact your health care provider. INDICATION: Dizziness COMPARISON: MRI brain 12/02/[address] brain 2014 TECHNIQUE: A CT volumetric acquisition was performe d of the brain without IV contrast. Please note that all CT scans at this [facility] use dose modulation, iterative reconstruction, and/or weight-based dosing when appropriate to reduce radiation dose to as low as reasonably achievable. FINDINGS: The right trigeminal nerve schwannoma is better visualized on the prior CT. No hemorrhage or hydrocephalus. Mild generalized atrophy and chronic white matter changes. No midline shift or extra-axial flu id collection. Visualized sinuses clear. No fracture. Procedure Note Amaury Barillas MD - 02/28/2022For matting of this note might be different from the original. For Patients: As a result of the Cures Act, medical imaging exams and procedure reports are released immediately into your electronic medical record. You may view this report before your referring provider. If you have questions, please contact [facility] health care provider. INDICATION: Dizziness COMPARISON: MRI brain 12/02/[address] brain 2014 TECHNIQUE: A CT volumetric acquisition was performe d of the brain without IV contrast. Please note that all CT scans at this [facility] use dose modulation, iterative reconstruction, and/or weight-based dosing when appropriate to reduce radiation dose to as low as reasonably achievable. FINDINGS: The right trigeminal nerve schwannoma is better visualized on the prior CT. No hemorrhage or hydrocephalus. Mild generalized atrophy and chronic white matter changes. No midline shift or extra-axial fluid collection. Visualized sinuses clear. No fracture. IMPRESSION: No significant change from the prior exa ms. Please note that all CT scans at this [facility] use dose modulation, iterative reconstruction, and/or weight-based dosing when appropriate to reduce radiation dose to as low as reasonably achievable. Dictated by Amaury Barillas MD @ 02/28/2022 12:54:48 PM (Electronically Signed) Sanjeev Castro MD CT from Last 3 Months Insurance Payer Benefit Plan / Subscriber ID Effective Dates Phone Addre ss Type Group MEDICARE PART B MEDICARE PART B [id number] 2018-Presen ATTN: CLAIMS - HB USE ONLY HB ONLY t [address] [place] [address] MEDICARE - PB MEDICARE PB [id number] 2018-Presen ATT N: CLAIMS USE ONLY ONLY t [address] [place] [address] FOR [id number] 2018-Presen [address] [place] [address] [facility] Employer 08/18/1981 [address] [facility] [place] [facility]Home) [facility] [phone] [place] [id number] (Work) [facility] [employer]er [phone] [place] [address]/[facility] Health/G[facility] ([facility]) [facility] [place] [id number] Care Teams Armament Repairer Relationship Specialty Start Date End Date Sanjeev Castro MD PCP - General Family Practice 03/07/21 [address] [place] [address] Lilliam Bucio MD Hematology Oncology 03/27/21 [address] [facility] [place] [id number] Araceli Sanchez, DIRECTOR DECISION SUPPORT Hematology Oncology 03/27/[address] [place] [address] [place] [address]
--- OUTSIDE RECORDS SUMMARY | 2022-05-21 13:44 | XMS_ITS | Encounter Summary ---
:1955 Author Organization Department [facility] Address [address] [place] [id number] Support Name Relationship Address Phone LATONYA REES Unavailable [phone] [place] [address] LATONYA REES Unavailable [address] [place] [address] Insurance Providers: All historical and current Section Date Range: From patient's date of to the date document was created.This section includes the names of all active insurance providers for the patient. Insurance Type of Plan Start of End of Group Member Insurance Policy P marcial's Provider Coverage Name Policy Policy Number ID Provider's Tesfaye's Relationship Coverage Coverage Telephone Name to Policy Number Tesfaye MEDICARE MEDICARE PART May 18, PART B [id number] Abhijit REES (WNR) (M) B 2017 [id number] ANSARI MEDICARE MEDICARE PART May 18, PART A [id number] Abhijit REES (WNR) (M) A 2017 [id number] [phone] ANSARI Selected Encounter This section includes the information on record at [place] for the Encounter. Date/Time Encounter Type Encounter Reason Provider Source Description Dec 07, 2021 09:30 Outpatient ADMIN HOLLY MARTINI Encounter (MASNONCT) I[facility] Encounter Template Text not used by [place] Social History: Smoking Status (Most current) and Tobacco Use (All prior to encounter date) This section includes the most current, and the historical, smoking and tobacco-related health factors from the [place] facility where the Encounter took place.Current Smoking Status This section includes the most current smoking, or tobacco-related health factor, from the [facility] facility where the Encounter took place. Date/Time Current Smoking Status Comment Facility Oct 01, 2017 10:51 AM FORMER TOBACCO USER 7Y OR [facility] Tobacco Use History This section includes a history of the smoking, or tobacco- related health factors, that were collected on or before the date of the Encounter. The data comes from the [place] facility where the Encounter took place. Date/Time Smoking Status/Tobacco Use Comment Facil ity Nov 28, 2015 02:13 PM FORMER TOBACCO USER 7Y OR [facility] Feb 07, 2014 10:32 AM FORMER TOBACCO USER 7Y OR [facility] Jul 31, 2011 01:54 PM LIFETIME NON-TOBACCO USER [facility] Nov 12, 2007 08:19 AM LIFETIME NON-TOBACCO USER [facility] Encounter Notes: All associated encounter notes This section contains the clinical notes associated to the Encounter. Date/Time Encounter Note(s) Provider Source Dec 06, 2021 09:23 PM [facility] LOC[facility] TITLE: COMMUNITY CARE-LUIZ SELF PRESENTIN G CARE COORD PLAN STANDARD TITLE: NONVA NOTE DATE OF NOTE: DEC 06, 2021@21:23 ENTRY DATE: DEC 07, 2021@21:23:45 AUTHOR: MIKAEL HAGER EXP COSIGNER: URGENCY: STATUS: COMPLETED COMMUNITY CARE-LUIZ SELF PRESENTING CARE CO ORD PLAN NOTE Has ADDENDA Emergency Notification Intake Date Presenting to the Facility: Nov Date of note has been modified to reflect Date o f Service. Reason for modification: Hospital Notification D ate:12/07/2021 8:16 AM CDT Method of Contact: Notified from [employer] worklist Notification ID: [id number] [facility] Referral #: [facility] Name: Hospital: [facility] Address: [address] City: [place] State: [place] Zip Code: Phone : [facility] Facility Point of Contact: GAIL Email: [email or web address] Name: Magnolia [facility] [place] [phone] Chief complaint: COUGH Primary Diagnosis: Disposition Unknown at time of intake note entry In Network Provider?: Yes Callback Attempts: 0 Contractor Name: [facility] 2 Third Libertarian Financial Assistance Specialist: [employer] Affiliation Code: CCN2 Affiliation Description: CCN2 POM REVIEW, FILLED IN MISSING PORTAL PARTS, NOT PRUDENT LAYPERSON ORIGINALLY ENTERED INTO VET ADDRESS: [address] [facility] [id number]. /es/ MIKAEL HAGER Die Fitter (AOD) Signed: 12/07/2021 21:26 Receipt Acknowledged By: 12/10/2021 12:05 /cyndi/ HOLLY SIMPSON RN Utilization Management 12/10/2021 ADDENDUM STATUS: COMPLETED Faxed for records No PACT listed in JLV. Will send email for packet request to to : /cyndi/ HOLLY SIMPSON RN Utilization Management Signed: 12/10/2021 12:15 12/21/2021 ADDENDUM STATUS: COMPLETED ER [place] 12/06/21 Information obtained from facility via f ax and sent to [facility] to be scanned into [facility] electronic medical record in JLV under Documents. /cyndi/ HOLLY SIMPSON RN Utilization Management Signed: 12/21/2021 11:30
--- OUTSIDE RECORDS SUMMARY | 2022-05-21 13:44 | XMS_ITS ---
:1955 Author Care Team Providers Name Role Phone DR. CRISTHIAN LUTZ Primary Care Provider [phone] DR. PEEWEE CEDILLO Referring Provider [phone] Allergies Code Code System Name Reaction Severity Status Onset Yellow Dye ? ? Active ? Medications Name Status Start Date Stop Date ? ? atorvastatin 20 mg tablet Active ? Not av ailable fluoxetine 20 mg capsule Active ? Not maxx ilable TAKE ONE CAPSULE BY MOUTH ONE TIME DAILY lisinopril 10 mg tablet Active ? Not avai lable TAKE ONE TABLET BY MOUTH ONE TIME DAILY metoprolol succinate ER 50 mg tablet,extended release 24 hr Acti ve ? Not available Take 1 tablet by mouth once daily. Problems Name Status Onset Date Source ? 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 Procedures None recorded. Results Lab Results None recorded. Past Encounters 06/14/2021 Rj De La Torre MD: [id number] [facility], [address], [place] [address], Ph. Social History Tobacco Smoking Status Current Some Day Smoker Vaccine List None recorded. Plan of Care Reminders Provider Appointments None recorded. ? ? Lab None recorded. ? ? Referral None recorded. ? ? Procedures None recorded. ? ? Surgeries None recorded. ? ? Imaging None recorded. ? ? Vitals None recorded.
[2022-05-21] MEDS: TAMSULOSIN HCL 0.4 MG CAPSULE PO (15:12)
[2022-05-21 15:14] VITALS: BP 182/97; PULSE 63; RESP 16; TEMP 36.4; O2SAT 98
--- NOTE | 2022-05-21 15:16 | ED.NURSE ---
patient discharged home. instructions provided to patient. BP elevated during stay. No symptoms of high BP and is having a nurse check it again tomorrow. Started on flomax. MD aware. Prescription for flomax sent to [facility]. Will see PCP friday.
== END 2022-05-21 15:17 | disposition home or self-care (01) ==
PROVIDERS: Emergency Provider Student in an Organized Health Care Education/Training Program; PCP Family Medicine
DX: N20.1 Calculus of ureter (principal)
CPT/HCPCS: 36415; 74019; 74176; 80053; 81003; 81015; 83690; 85025; 87086; 99283; 99284; A9270

== ENCOUNTER 2022-10-07 11:30 | Emergency (ER) | payer MEDICARE, OTHER, SELFPAY ==
[2022-10-07] VITALS (10 sets, daily range): BP systolic 124–165; BP diastolic 70–93; PULSE 60–73; RESP 16–18; TEMP 36.3–36.9; O2SAT 95–100; BMI 32.3
--- NOTE | 2022-10-07 16:53 | CRLHL7_ITS ---
For Patients: As a result of the Century Cures Act, medical imaging exams and procedure reports are released immediately into your electronic medical record. You may view this report before your referring provider. If you have questions, please contact your health care provider. INDICATION: Left-sided abdomen pain. TECHNIQUE: CT abdomen and pelvis acquired with 98 cc Isovue 370 IV contrast. COMPARISON: December 31, 2015. FINDINGS: Lower chest: Unremarkable. Liver: Unremarkable. Normal in size and attenuation. No suspicious masses. Gallbladder and bile ducts: Unremarkable. No stones or inflammation. No biliary dilatation. Pancreas: Unremarkable. No mass or inflammation. Spleen: Unremarkable. Normal in size. No masses. Adrenal glands: Unremarkable. No nodules. Kidneys: Unremarkable. No suspicious masses, stones, or hydronephrosis. GI tract: Mild inflammatory changes amongst diverticula in the proximal sigmoid colon. Remainder of the GI tract is unremarkable. Normal appendix. Vasculature: Abdominal aorta is normal in caliber. Mesenteric arteries are patent. Lymph nodes: No lymphadenopathy. Peritoneum/Abdominal Wall: Unremarkable. No sign of mass or infiltration. No free air or significant free fluid. Pelvis: Bilateral fat containing inguinal hernias. Bones: Unremarkable for age. IMPRESSION: Mild acute diverticulitis suspected in the proximal sigmoid colon. Please note that all CT scans at this facility use dose modulation, iterative reconstruction, and/or weight-based dosing when appropriate to reduce radiation dose to as low as reasonably achievable. Dictated by Kaushal Dolan MD @ 10/07/2022 7:27:21 PM (Electronically Signed)
[2022-10-07] MEDS: 0.9 % SODIUM CHLORIDE 1000 ml 1,000 ML IV (17:24)
[2022-10-07 17:31] LABS: Lactate* 1.3 mmol/L (0.5-1.9)
[2022-10-07 17:33] LABS: Basophils Absolute Auto 0.07 K/uL (0.00-0.30); Basophils Percent Auto 0.6 % (0.0-3.0); Eosinophils Absolute Auto 0.34 K/uL (0.00-0.50); Eosinophils Percent Auto 3.1 % (0.0-7.0); Hematocrit 44.7 % (37.0-53.0); Hemoglobin* 15.5 gm/dL (13.5-17.5); Immature Granulocytes Abs Auto 0.01 K/uL (0.00-0.30); Immature Granulocytes Pct Auto 0.1 %; Lymphocytes Absolute Auto 2.42 K/uL (0.90-2.90); Lymphocytes Percent Auto 22.4 % (20-44); Mean Corpuscular HGB Conc 35 gm/dL (32-36); Mean Corpuscular Hemoglobin 33 pg (26-34); Mean Corpuscular Volume 94 fL (80-100); Monocytes Percent Auto 7.1 % (0.0-11.0); Neutrophils Absolute Auto 7.19 K/uL (1.7-7.0); Neutrophils Percent Auto 66.7 % (42.0-72.0); Platelet Count* 231 K/uL (140-440); RDW Coefficient of Variation % 12.1 % (11.5-15.5); Red Blood Count 4.74 m/uL (4.30-5.90)
[2022-10-07 17:36] LABS: Slide Review Reflex No
[2022-10-07 17:46] LABS: Albumin* 4.3 g/dL (3.3-5.0); Chloride* 103 mmol/L (96-114)
[2022-10-07 17:47] LABS: Potassium* 3.9 mmol/L (3.6-5.1); Sodium* 138 mmol/L (135-149)
[2022-10-07 17:49] LABS: Creatinine* 1.2 mg/dL (0.5-1.5); Est. Creatinine Clearance* 52.43; Estimated Glomerular Filt Rate 65 ml/min
[2022-10-07 17:50] LABS: Alanine Aminotransferase* 27 U/L (4-50); Alkaline Phosphatase* 72 U/L (40-150); Aspartate Amino Transferase* 26 U/L (12-35); Bilirubin Direct* 0.2 mg/dL (0.0-0.5); Bilirubin Total* 0.8 mg/dL (0.1-1.5); Blood Urea Nitrogen* 13 mg/dL (7-30); Calcium* 9.3 mg/dL (8.4-10.6); Carbon Dioxide* 29 mmol/L (20-32); Glucose* 87 mg/dL (60-115); Lipase* 132 U/L (23-300); Total Protein* 7.3 g/dL (6.0-8.3)
[2022-10-07 17:58] LABS: C Reactive Protein* < 0.5 mg/dL (0.5-1.0)
--- NOTE | 2022-10-07 18:01 | ED_ITS ---
HPI - General Adult General Date Seen: 10/07/22 Chief complaint: Abdominal Pain Stated complaint: Lower L abdominal pain Time Seen by Provider: 10/07/22 16:40 History of Present Illness HPI narrative: Patient is a 67-year-old who presents to the emergency department for evaluation of left-sided abdominal pain. He says this has been bothering him for about 3 months or so but it has been worse the past few days. He has little testicular pain as well but the testicle has not seemed swollen or red or anything. He has not had any urinary symptoms. He has been eating and drinking fine, has not had any nausea or vomiting. Denies stool changes. No diarrhea or black or bloody stools. His last colonoscopy was probably about 10 years ago, he says they found some polyps. He says that he thought these symptoms sounded like maybe gallbladder problems so he thought he should get get them checked out. Symptoms are maybe a little bit worse after lifting heavier things at work, but he has not noted any significant bulges in his abdomen or going. Related Data Home Medications Medication Instructions Recorded Confirmed nutritional supplements 02/27/22 atorvastatin 20 mg tablet mg 10/07/22 lisinopril 20 mg tablet mg 10/07/22 Previous Rx's Medication Instructions Recorded diazepam 5 mg tablet 5 - 10 mg PO BID PRN for more 02/28/22 severe dizziness #10 tabs diazepam 5 mg tablet (Valium) 5 - 10 mg PO TID PRN for severe 02/28/22 dizziness #1 tab meclizine 25 mg tablet 25 mg PO TID PRN dizziness #21 tabs 02/28/22 Allergies Allergy/AdvReac Type Severity Reaction Status Date / Time No Known Drug Allergies Allergy Verified 02/27/22 23:48 Review of Systems Status of ROS: Reports: 10 or more systems reviewed and unremarkable except as noted in History and below [facility] Social History Smoking Status: Former smoker What tobacco products do you use: cigars Do you use any of these nicotine containing products: None Second hand tobacco smoke exposure: Yes ( smokes) How often do you have a drink containing alcohol: never AUDIT-C Alcohol total score: 0 Non-prescribed substance use: denies use service: Yes Exam Narrative: Exam Narrative: Vital signs as noted above. In general, an alert, well-appearing patient. Head: Normocephalic, atraumatic. Eyes: Pupils are equal reactive. Extraocular movements are full. Conjunctivae are normal. ENT: Mucous membranes are moist. Throat is normal. Neck: Supple without lymphadenopathy. Heart: Regular rate and rhythm. No murmur or rub. Lungs: Clear bilaterally. No increased work of breathing, crackles or wheezes. Abdomen: Soft and nondistended, some left-sided tenderness without rebound guarding or rigidity. : No evidence of testicular swelling or erythema. Mild tenderness noted on the left. He has some tenderness in the canal with Valsalva but I do not feel a significant hernia. Extremities: Well perfused. No edema. No calf tenderness. Pulses intact. Neurologic: Patient is alert and oriented to person and place. Speech is fluent. Face is symmetric. Moves all extremities equally. Affect: Normal. Skin: Warm and dry. Well perfused. Const: Vital Signs, click to edit/add: Vital Signs - 24 hr 10/07/22 12:22 10/07/22 16:56 10/07/22 17:44 Temperature 97.3 F L 98.5 F Pulse Rate 67 Pulse Rate [Right Pulse Oximeter] 62 63 Respiratory Rate 16 18 Blood Pressure Blood Pressure [Le ft Upper Arm] 165/93 H 157/83 H Pulse Oximetry 98 98 96 Oxygen Delivery Me od Room Air Room Air 10/07/22 17:51 10/07/22 18:00 10/07/22 18:20 Temperature Pulse Rate 60 63 69 Pulse Rate [Right Pulse Oximeter] Respiratory Rate Blood Pressure 150/72 H 151/82 H Blood Pressure [Le ft Upper Arm] Pulse Oximetry 97 97 99 Oxygen Delivery [facility] 10/07/22 18:21 10/07/22 19:00 10/07/22 19:01 Temperature Pulse Rate 65 70 71 Pulse Rate [Right Pulse Oximeter] Respiratory Rate Blood Pressure 124/70 Blood Pressure [Le ft Upper Arm] Pulse Oximetry 100 95 97 Oxygen Delivery [facility] 10/07/22 19:02 Temperature Pulse Rate 73 Pulse Rate [Right Pulse Oximeter] Respiratory Rate Blood Pressure Blood Pressure [Le ft Upper Arm] Pulse Oximetry 96 Oxygen Delivery Me thod Documenting provider has reviewed patient's vital signs: yes Course Course Hospital Course: We established an IV here, he had a L of normal saline, basic labs and I elected to do a CT scan given ongoing nature of his pain and worsening over the past couple of days. Labs showed really no concerning findings. His white blood cell count was normal with an essentially normal diff. Hemoglobin was 15.5 platelets normal. Metabolic panel showed normal electrolytes, a BUN of 13 and a creatinine of 1.2. Lactate was 1.3. LFTs were unremarkable. CRP was less than 0.5. Lipase was 132. Urinalysis was notable only for 2-5 red cells and 0-2 white cells. FINDINGS: Lower chest: Unremarkable. Liver: Unremarkable. Normal in size and attenuation. No suspicious masses. Gallbladder and bile ducts: Unremarkable. No stones or inflammation. No biliary dilatation. Pancreas: Unremarkable. No mass or inflammation. Spleen: Unremarkable. Normal in size. No masses. Adrenal glands: Unremarkable. No nodules. Kidneys: Unremarkable. No suspicious masses, stones, or hydronephrosis. GI tract: Mild inflammatory changes amongst diverticula in the proximal sigmoid colon. Remainder of the GI tract is unremarkable. Normal appendix. Vasculature: Abdominal aorta is normal in caliber. Mesenteric arteries are patent. Lymph nodes: No lymphadenopathy. Peritoneum/Abdominal Wall: Unremarkable. No sign of mass or infiltration. No free air or significant free fluid. Pelvis: Bilateral fat containing inguinal hernias. Bones: Unremarkable for age. IMPRESSION: Mild acute diverticulitis suspected in the proximal sigmoid colon. Exam is certainly consistent with mild diverticulitis with mild left lower quadrant tenderness. I do not think this likely explains the pain that he says he has been having for several months, but I think it is reasonable to treat him with antibiotics and then have him follow up with primary care to see if his symptoms are resolved after that. Discussed reasons to return including more severe pain, fevers, vomiting, bloody stools. No evidence of significant hernia on CT scan. Urinalysis is unremarkable. Vital Signs Vital signs: Initial Vital Signs Temperature 97.3 F L 10/07/22 12:22 Temperature Source Temporal Artery Scan 10/07/22 12:22 Pulse Rate 62 10/07/22 12:22 Pulse Rhythm 10/07/22 12:22 Respiratory Rate 16 10/07/22 12:22 Blood Pressure 165/93 H 10/07/22 12:22 Blood Pressure Mean 117 10/07/22 12:22 Pulse Oximetry 98 10/07/22 12:22 Oxygen Delivery Method 10/07/22 12:22 Vital Signs Temperature 97.3 F L 10/07/22 12:22 Pulse Rate 62 10/07/22 12:22 Respiratory Rate 16 10/07/22 12:22 Blood Pressure 165/93 H 10/07/22 12:22 Pulse Oximetry 98 10/07/22 12:22 Oxygen Delivery Method 10/07/22 12:22 Temperature 98.5 F 10/07/22 16:56 Pulse Rate 73 10/07/22 19:02 Respiratory Rate 18 10/07/22 16:56 Blood Pressure 124/70 10/07/22 19:01 Pulse Oximetry 96 10/07/22 19:02 Oxygen Delivery Method 10/07/22 16:56 Medical Decision Making Lab Data Labs: Lab Results 10/07/22 10/07/22 10/07/22 Range/Units 17:15 17:15 17:15 WBC 10.80 (4.50-11.00) K/uL RBC 4.74 (4.30-5.90) m/uL Hgb 15.5 (13.5-17.5) gm/dL Hct 44.7 (37.0-53.0) % MCV 94 (80-100) fL MCH 33 (26-34) pg MCHC 35 (32-36) gm/dL RDW Coeff of Malu 12.1 (11.5-15.5) % Plt Count 231 (140-440) K/uL Neut % (Auto) 66.7 (42.0-72.0) % Lymph % (Auto) 22.4 (20-44) % [place] % (Auto) 7.1 (0.0-11.0) % Eos % (Auto) 3.1 (0.0-7.0) % Baso % (Auto) 0.6 (0.0-3.0) % Neut # (Auto) 7.19 H (1.7-7.0) K/uL Lymph # (Auto) 2.42 (0.90-2.90) K/uL [place] # (Auto) 0.80 (0.00-0.90) K/UL Eos # (Auto) 0.34 (0.00-0.50) K/uL Baso # (Auto) 0.07 (0.00-0.30) K/uL Sodium 138 (135-149) mmol/L Potassium 3.9 (3.6-5.1) mmol/L Chloride 103 (96-114) mmol/L Carbon Dioxide 29 (20-32) mmol/L BUN 13 (7-30) mg/dL Creatinine 1.2 (0.5-1.5) mg/dL Estimated Creat Clear 52.43 Estimated GFR 65 ml/min Glucose 87 (60-115) mg/dL Lactate 1.3 (0.5-1.9) mmol/L Calcium 9.3 (8.4-10.6) mg/dL Total Bilirubin 0.8 (0.1-1.5) mg/dL Direct Bilirubin 0.2 (0.0-0.5) mg/dL AST 26 (12-35) U/L ALT 27 (4-50) U/L Alkaline Phosphatase 72 (40-150) U/L C-Reactive Protein < 0.5 L (0.5-1.0) mg/dL Total Protein 7.3 (6.0-8.3) g/dL Albumin 4.3 (3.3-5.0) g/dL Lipase 132 (23-300) U/L Urine Color (Yellow) Urine Appearance (Clear) Urine pH (5.0-8.5) Ur Specific Sullivan (1.000-1.030) Urine Protein (Negative) Urine Glucose (UA) (Negative) Urine Ketones (Negative) Urine Blood (Negative) Urine Nitrite (Negative) Urine Bilirubin (Negative) Urine Urobilinogen (0.2-1.0) Ur Leukocyte Esterase (Negative) Urine RBC (0-2) Urine WBC (0-5) Ur Squamous Epith Cells (None-Few) Urine Bacteria (None) 10/07/22 Range/Units 18:13 WBC (4.50-11.00) K/uL RBC (4.30-5.90) m/uL Hgb (13.5-17.5) gm/dL Hct (37.0-53.0) % MCV (80-100) fL MCH (26-34) pg MCHC (32-36) gm/dL RDW Coeff of Malu (11.5-15.5) % Plt Count (140-440) K/uL Neut % (Auto) (42.0-72.0) % Lymph % (Auto) (20-44) % [place] % (Auto) (0.0-11.0) % Eos % (Auto) (0.0-7.0) % Baso % (Auto) (0.0-3.0) % Neut # (Auto) (1.7-7.0) K/uL Lymph # (Auto) (0.90-2.90) K/uL [place] # (Auto) (0.00-0.90) K/UL Eos # (Auto) (0.00-0.50) K/uL Baso # (Auto) (0.00-0.30) K/uL Sodium (135-149) mmol/L Potassium (3.6-5.1) mmol/L Chloride (96-114) mmol/L Carbon Dioxide (20-32) mmol/L BUN (7-30) mg/dL Creatinine (0.5-1.5) mg/dL Estimated Creat Clear Estimated GFR ml/min Glucose (60-115) mg/dL Lactate (0.5-1.9) mmol/L Calcium (8.4-10.6) mg/dL Total Bilirubin (0.1-1.5) mg/dL Direct Bilirubin (0.0-0.5) mg/dL AST (12-35) U/L ALT (4-50) U/L Alkaline Phosphatase (40-150) U/L C-Reactive Protein (0.5-1.0) mg/dL Total Protein (6.0-8.3) g/dL Albumin (3.3-5.0) g/dL Lipase (23-300) U/L Urine Color Yellow (Yellow) Urine Appearance Clear (Clear) Urine pH 7.0 (5.0-8.5) Ur Specific Sullivan 1.020 (1.000-1.030) Urine Protein Negative (Negative) Urine Glucose (UA) Negative (Negative) Urine Ketones Negative (Negative) Urine Blood Trace-intact A (Negative) Urine Nitrite Negative (Negative) Urine Bilirubin Negative (Negative) Urine Urobilinogen 0.2 (0.2-1.0) Ur Leukocyte Esterase Negative (Negative) Urine RBC 2-5 A (0-2) Urine WBC 0-2 (0-5) Ur Squamous Epith Cells Few (None-Few) Urine Bacteria None (None) Discharge Plan Discharge Clinical Impression: Diverticulitis Patient Disposition: Home, Self-Care Condition: Stable Instructions: Diverticulitis (ED) Additional Instructions: Antibiotic as prescribed. Follow-up with primary care in the coming week for recheck. Return for worsening, fevers, vomiting, severe abdominal pain or bloody stools. Ibuprofen or Tylenol if needed. Prescriptions: No Action nutritional supplements diazepam [Valium] 5 mg tablet 5 - 10 mg PO TID PRN (Reason: for severe dizziness) Qty: 1 0RF Hold Instructions: not taking diazepam 5 mg tablet 5 - 10 mg PO BID PRN (Reason: for more severe dizziness) Qty: 10 0RF Hold Instructions: not taking meclizine 25 mg tablet 25 mg PO TID PRN (Reason: dizziness) Qty: 21 0RF atorvastatin 20 mg tablet Label Comments: TAKE ONE TABLET BY MOUTH ONE TIME DAILY AT BEDTIME lisinopril 20 mg tablet Follow Up/Referrals: Debora Perkins DO [Primary Care Provider] - Stand Alone Forms: MyHealth Info Instructions Discharge Comment: instymed
[2022-10-07 18:23] LABS: Appearance Urine Clear (Clear); Bilirubin Urine Negative (Negative); Blood Urine Trace-intact (Negative); Color Urine Yellow (Yellow); Glucose Urine Negative (Negative); Ketones Urine Negative (Negative); Leukocyte Esterase Urine Negative (Negative); Nitrite Urine Negative (Negative); Protein Urine Negative (Negative); Urobilinogen Urine 0.2 (0.2-1.0)
[2022-10-07 18:39] LABS: Squamous Epithelial Cell Urine Few (None-Few); WBC Urine 0-2 (0-5)
== END 2022-10-07 19:58 | disposition home or self-care (01) ==
PROVIDERS: Emergency Provider Emergency Medicine; PCP Family Medicine
DX: K57.92 Diverticulitis of intestine, part unspecified, without perforation or abscess without bleeding (principal)
CPT/HCPCS: 36415; 74177; 80048; 80076; 81001; 83605; 83690; 85025; 86140; 99284; J7030; Q9967

== ENCOUNTER 2022-10-17 13:09 | Emergency (ER) | payer MEDICARE, OTHER, SELFPAY ==
[2022-10-17 13:14] VITALS: BP 161/77; PULSE 66; RESP 20; TEMP 36.1; O2SAT 99; BMI 33.9
--- NOTE | 2022-10-17 13:58 | ED.ABDPAIN ---
HPI - Abdominal Pain General Chief Complaint: Abdominal Pain Stated Complaint: Lower Left Abdominal Pain Time Seen by Provider: 10/17/22 13:21 History of Present Illness HPI narrative: This 67-year-old male comes in reporting left-sided abdominal pain. He has had this pain for the past 2-3 months and came in almost a couple weeks ago here. He had a CT scan with IV contrast that showed evidence of mild diverticulitis in the upper and lower portions of the descending colon. He received a prescription for Augmentin and has completed this course of antibiotic. He states that he continues to have pain and now has occasions where there are sharp stabbing pains that last for brief few seconds. He does not report any fever or blood in the toilet. He does not have any change in his appetite. He has not had a colonoscopy for more than 10 years and was encouraged to follow-up with this in the future. Related Data Home Medications Medication Instructions Recorded Confirmed nutritional supplements 02/27/22 atorvastatin 20 mg tablet mg 10/07/22 lisinopril 20 mg tablet mg 10/07/22 amoxicillin 875 mg-potassium tab 10/17/22 clavulanate 125 mg tablet lisinopril 20 tab 10/17/22 mg-hydrochlorothiazide 12.5 mg tablet Previous Rx's Medication Instructions Recorded ciprofloxacin HCl 500 mg tablet 500 mg PO BID #20 tabs 10/17/22 (Cipro) metronidazole 500 mg tablet 500 mg PO BID 10 days #20 tabs 10/17/22 Allergies Allergy/AdvReac Type Severity Reaction Status Date / Time No Known Drug Allergies Allergy Verified 10/17/22 13:21 Review of Systems Status of ROS Reports: 10 or more systems reviewed and unremarkable except as noted in History and below Narrative Constitutional: No fevers, no weight gain or loss. Eyes: No discharge. No vision changes. HENT: No congestion, no sore throat, no ear pain. Cardiovascular: No chest pain, no palpitations. Respiratory: No shortness of breath, no wheezes, no cough. Gastrointestinal: No vomiting, no diarrhea. Left-sided abdominal pain as described above. Genitourinary: No dysuria, no hematuria. Musculoskeletal: Normal range of motion. Skin: No rashes, no pruritis. Neurological: No dizziness, weakness, sensory change, speech change. Endo/Heme/Allergies: No bruising or bleeding. No polydipsia. Pysch: no suicidality, no anxiety, no insomnia. All other systems reviewed and are negative. [facility] Social History Smoking Status: Former smoker What tobacco products do you use: cigars Do you use any of these nicotine containing products: None Second hand tobacco smoke exposure: Yes ( smokes) How often do you have a drink containing alcohol: never AUDIT-C Alcohol total score: 0 Non-prescribed substance use: denies use service: Yes Exam Narrative: Exam Narrative: Constitutional: Well-developed, well-nourished, no acute distress. HEENT: Normocephalic, atraumatic. Neck: Normal range of motion. Nontender. Supple. Heart: Regular. No murmurs. Normal rate. Intact distal pulses. Lungs: Clear to auscultation. No chest discomfort. No wheezes, rhonchi, or rales. Abdomen: Normal bowel sounds. Diffuse pain in the left abdomen. Mild rebound tenderness. Genitalia: Deferred. Back: No midline tenderness. Normal range of motion. Extremities: Normal range of motion. No injury. Skin: Intact. No rash. Warm. No erythema or pallor. Neurologic: No altered sensation. No weakness. Alert and oriented. Psychiatric: No suicidality. No anxiety or depression. No insomnia. Nursing notes and vitals signs are reviewed. Const: Vital Signs, click to edit/add: Vital Signs - 24 hr 10/17/22 13:14 Temperature 97 F L Pulse Rate [Right Pulse Oximeter] 66 Respiratory Rate 20 Blood Pressure [Ri ght Upper Arm] 161/77 H Pulse Oximetry 99 Oxygen Delivery Me thod Room Air Course Vital Signs Vital signs: Initial Vital Signs Temperature 97 F L 10/17/22 13:14 Temperature Source Temporal Artery Scan 10/17/22 13:14 Pulse Rate 66 10/17/22 13:14 Pulse Rhythm 10/17/22 13:14 Pulse Strength 3+ Normal 10/17/22 13:14 Respiratory Rate 20 10/17/22 13:14 Blood Pressure 161/77 H 10/17/22 13:14 Blood Pressure Mean 105 10/17/22 13:14 Blood Pressure Position Sitting 10/17/22 13:14 Pulse Oximetry 99 10/17/22 13:14 Oxygen Delivery Method 10/17/22 13:14 Vital Signs Temperature 97 F L 10/17/22 13:14 Pulse Rate 66 10/17/22 13:14 Respiratory Rate 20 10/17/22 13:14 Blood Pressure 161/77 H 10/17/22 13:14 Pulse Oximetry 99 10/17/22 13:14 Oxygen Delivery Method 10/17/22 13:14 Temperature 97 F L 10/17/22 13:14 Pulse Rate 66 10/17/22 13:14 Respiratory Rate 20 10/17/22 13:14 Blood Pressure 161/77 H 10/17/22 13:14 Pulse Oximetry 99 10/17/22 13:14 Oxygen Delivery Method 10/17/22 13:14 MDM - Abdominal Pain MDM Narrative Medical decision making narrative: This patient comes in with persistent left-sided abdominal pain despite taking a course of Augmentin. He did have evidence of diverticulitis on CT scan that was done at a visit almost 2 weeks ago. He arrives here with normal vital signs. I did discuss with him options of repeating this test and in a process of shared decision-making he declined it for now. He did received prescription for Cipro and Flagyl in the hopes that this would be a better treatment in his particular condition. I did state that Augmentin is a proper treatment for diverticulitis and this is what I would have prescribed myself however given the possibility of resistant to Augmentin will give this a try for now. He is encouraged to return if he generates a fever, worsening pain, or blood in the toilet. I also advised him to follow-up for colonoscopy. Discharge Plan Discharge Clinical Impression: Diverticulitis Patient Disposition: Home, Self-Care Condition: Unchanged Additional Instructions: Take medication as prescribed. Follow up with MD or return if worsening symptoms happen. Prescriptions: New metronidazole 500 mg tablet 500 mg PO BID 10 Days Qty: 20 0RF ciprofloxacin HCl [Cipro] 500 mg tablet 500 mg PO BID Qty: 20 0RF No Action nutritional supplements atorvastatin 20 mg tablet Label Comments: TAKE ONE TABLET BY MOUTH ONE TIME DAILY AT BEDTIME lisinopril 20 mg tablet Hold Instructions: changed lisinopril-hydrochlorothiazide 20-12.5 mg tablet Label Comments: TAKE ONE TABLET BY MOUTH ONE TIME DAILY amoxicillin-pot clavulanate 875-125 mg tablet Stand Alone Forms: [facility] Info Instructions
== END 2022-10-17 14:21 | disposition home or self-care (01) ==
LOC: ED 14:12
PROVIDERS: Emergency Provider Emergency Medicine Emergency Medical Services
DX: K57.92 Diverticulitis of intestine, part unspecified, without perforation or abscess without bleeding (principal)
CPT/HCPCS: 99283; 99284

== ENCOUNTER 2023-03-06 11:29 | Emergency (ER) | payer MEDICARE, OTHER, SELFPAY ==
[2023-03-06 11:36] VITALS: BP 174/94; PULSE 61; RESP 18; TEMP 36.1; O2SAT 97; BMI 32.3
--- NOTE | 2023-03-06 11:56 | ED_ITS ---
HPI - Abdominal Pain General Time Seen by Provider: 11:57 Date Seen: 03/06/23 Chief Complaint: Abdominal Pain Stated Complaint: Abdominal pain, back pain, weakness Time Seen by Provider: 03/06/23 11:44 Source: patient, RN notes reviewed and old records reviewed Mode of arrival: ambulatory Limitations: no limitations History of Present Illness HPI narrative: This 67-year-old male is coming in with lower abdominal pain, does radiate up in out words into his abdomen and back. He feels more in what he points to the suprapubic area. He was at work this morning and it was bad. Smells of cooking are bothering him and making him nauseated. He has not actually had any vomiting. Denies any fevers. No diarrhea or urinary symptoms. He has had a history kidney stones. Also had diverticulitis in September of this year. He thinks he had a colonoscopy at the [facility] a few years ago, has not had an updated colonoscopy since the episode of diverticulitis. MD elicited complaint: abdominal pain Related Data Home Medications Medication Instructions Recorded Confirmed atorvastatin 20 mg tablet 20 mg 10/07/22 Previous Rx's Medication Instructions Recorded amoxicillin 875 mg-potassium 1 tab PO BID #20 tabs 03/06/23 clavulanate 125 mg tablet Allergies Allergy/AdvReac Type Severity Reaction Status Date / Time No Known Drug Allergies Allergy Verified 10/17/22 13:21 Review of Systems Status of ROS Reports: 6 or more systems reviewed and unremarkable except as noted in History and below PFSH PFSH Social History Smoking Status: Former smoker What tobacco products do you use: cigars Do you use any of these nicotine containing products: None Second hand tobacco smoke exposure: Yes ( smokes) How often do you have a drink containing alcohol: never AUDIT-C Alcohol total score: 0 Non-prescribed substance use: denies use service: Yes Exam Const: Vital Signs, click to edit/add: Vital Signs - 24 hr 03/06/23 11:36 03/06/23 13:55 Temperature 97 F L 96.8 F L Pulse Rate [Right Pulse Oximeter] 61 63 Respiratory Rate 18 18 Blood Pressure [Ri ght Upper Arm] 174/94 H 149/75 H Pulse Oximetry 97 98 Oxygen Delivery Me thod Room Air Room Air Documenting provider has reviewed patient's vital signs: yes Common normals: no apparent distress, average body habitus, oriented x3, no limitations, healthy appearing, alert and well nourished General appearance: cooperative, comfortable, well kempt and well developed Other: Noted to be lying flat on the ER bed in room 2. HENMT: Common normals: normocephalic, head/scalp atraumatic and hearing grossly normal bilaterally Head and scalp: normocephalic and atraumatic Face and sinus: normal facial exam Eye: Common normals: PERRL, EOMs intact bilaterally, conjunctivae normal and no scleral icterus Conjunctiva: conjunctiva(e) normal Pupil: PERRL Neck & C-Spine: Common normals: full ROM, no lymphadenopathy and supple Lymph: Lymphatic: no lymphadenopathy noted Resp: Common normals: normal respiratory effort, no retractions, no use of accessory muscles and clear to auscultation bilaterally Auscultation: clear to auscultation bilaterally Cardio: Common normals: regular rate, regular rhythm, S1 normal heart sound, S2 normal heart sound, no gallops, no clicks and no murmurs Rate: regular rate Rhythm: regular rhythm Heart sounds: S1 normal and S2 normal GI: Other: Abdomen is soft without rebound or guarding but he does have suprapubic to left lower quadrant tenderness. Normal bowel sounds. I do not feel any masses. Neuro: Common normals: oriented x3 Sensorium/orientation: alert Psych: Appearance: well kempt Course Course Hospital Course: Patient will have an IV established, get baseline labs. Will give him a L of IV fluids, 4 mg IV Zofran for nausea and 15 mg IV Toradol for initial pain ma nagement. If the Toradol is not working, can consider increased pain management with IV narcotics. Will be getting imaging of his abdomen with CT with IV contrast. His distribution certainly seems to be more consistent with his diverticulitis that he had in September. Consideration for kidney stones as well, will obtain a urinalysis. Will rule out or in acute intra-abdominal pathology. Abdomen does not seem surgical at this time but given his history of the pain radiating out, need to consider early peritonitis. He is hemodynamically stable, no evidence of sepsis, will watch is vitals closely while here. Reevaluation(s) Time of Reevaluation #1: 14:40 Reevaluation #1: Reviewed with patient that his CT is showing diverticulitis in the area as before, also small left inguinal hernia. We will initiate IV Unasyn dose, believe he is stable to discharge on oral antibiotics and have trial of outpatient treatment. Have discussed the necessity of follow up with general surgery, getting updated colonoscopy when appropriate. Did review signs and symptoms that should bring him to return to the ED emergently. Reviewed that his labs are reassuring. Vital Signs Vital signs: Initial Vital Signs Temperature 97 F L 03/06/23 11:36 Temperature Source Temporal Artery Scan 03/06/23 11:36 Pulse Rate 61 03/06/23 11:36 Pulse Rhythm Regular 03/06/23 11:36 Respiratory Rate 18 03/06/23 11:36 Blood Pressure 174/94 H 03/06/23 11:36 Blood Pressure Mean 120 H 03/06/23 11:36 Blood Pressure Position Sitting 03/06/23 11:36 Pulse Oximetry 97 03/06/23 11:36 Oxygen Delivery Method Room Air 03/06/23 11:36 Vital Signs Temperature 97 F L 03/06/23 11:36 Pulse Rate 61 03/06/23 11:36 Respiratory Rate 18 03/06/23 11:36 Blood Pressure 174/94 H 03/06/23 11:36 Pulse Oximetry 97 03/06/23 11:36 Oxygen Delivery Method Room Air 03/06/23 11:36 Temperature 96.8 F L 03/06/23 13:55 Pulse Rate 63 03/06/23 13:55 Respiratory Rate 18 03/06/23 13:55 Blood Pressure 149/75 H 03/06/23 13:55 Pulse Oximetry 98 03/06/23 13:55 Oxygen Delivery Method Room Air 03/06/23 13:55 MDM - Abdominal Pain Lab Data Attestation: I reviewed the patient's lab results. Labs: Lab Results 03/06/23 03/06/23 Range/Units 12:14 12:30 WBC 10.56 (4.50-11.00) K/uL RBC 5.26 (4.30-5.90) m/uL Hgb 16.8 (13.5-17.5) gm/dL Hct 48.5 (37.0-53.0) % MCV 92 (80-100) fL MCH 32 (26-34) pg MCHC 35 (32-36) gm/dL RDW Coeff of [place] 12.3 (11.5-15.5) % Plt Count 254 (140-440) K/uL Neut % (Auto) 74.5 H (42.0-72.0) % Lymph % (Auto) 15.8 L (20-44) % [place] % (Auto) 6.3 (0.0-11.0) % Eos % (Auto) 3.0 (0.0-7.0) % Baso % (Auto) 0.3 (0.0-3.0) % Neut # (Auto) 7.90 H (1.7-7.0) K/uL Lymph # (Auto) 1.70 (0.90-2.90) K/uL [place] # (Auto) 0.70 (0.00-0.90) K/UL Eos # (Auto) 0.32 (0.00-0.50) K/uL Baso # (Auto) 0.03 (0.00-0.30) K/uL Abs Immat Gran (auto) 0.01 (0.00-0.30) K/uL Imm/Tot Granulo (auto) 0.1 % Sodium 137 (135-149) mmol/L Potassium 3.7 (3.6-5.1) mmol/L Chloride 100 (96-114) mmol/L Carbon Dioxide 28 (20-32) mmol/L BUN 18 (7-30) mg/dL Creatinine 1.4 (0.5-1.5) mg/dL Estimated Creat Clear 44.94 Estimated GFR 54 ml/min Glucose 86 (60-115) mg/dL Lactate 1.1 (0.5-1.9) mmol/L Calcium 9.9 (8.4-10.6) mg/dL Total Bilirubin 1.1 (0.1-1.5) mg/dL AST 29 (12-35) U/L ALT 26 (4-50) U/L Alkaline Phosphatase 73 (40-150) U/L C-Reactive Protein < 0.5 L (0.5-1.0) mg/dL Total Protein 7.8 (6.0-8.3) g/dL Albumin 4.6 (3.3-5.0) g/dL Urine Color Yellow (Yellow) Urine Appearance Clear (Clear) Urine pH 5.5 (5.0-8.5) Ur Specific [place] 1.025 (1.000-1.030) Urine Protein Negative (Negative) Urine Glucose (UA) Negative (Negative) Urine Ketones Negative (Negative) Urine Blood Trace-intact A (Negative) Urine Nitrite Negative (Negative) Urine Bilirubin Negative (Negative) Urine Urobilinogen 0.2 (0.2-1.0) Ur Leukocyte Esterase Negative (Negative) Urine RBC 0-2 (0-2) Urine WBC 0-2 (0-5) Ur Squamous Epith Cells Few (None-Few) Urine Bacteria Few A (None) Imaging Data CT scan - abdomen: Attestation: I have reviewed the pertinent imaging results. Radiologist's impression: Patient: [facility] Facility:?[facility] Patient ID:?[id number] Site Patient ID:?[id number]. Site :?[id number] Study:?CT Abdomen/Pelvis 98 cc's Isovue 370-03/06/2023 1:47:59 PM Ordering Physician:?Bear Kasper Final Report: INDICATION: Nausea. Left lower quadrant pain. TECHNIQUE: CT abdomen and pelvis acquired with 98 mL Isovue 370 contrast. COMPARISON: CT abdomen/pelvis dated 10/07/2022. FINDINGS: Lower chest: Mild bibasilar dependent atelectasis. No focal consolidation. Liver: No suspicious focal hepatic lesion. Gallbladder and bile ducts: Subtle cholelithiasis. No secondary signs of acute cholecystitis. Pancreas: Unremarkable. Spleen: Unremarkable. Adrenal glands: Unremarkable. Kidneys: Kidneys enhance symmetrically, without hydronephrosis. Stable right upper pole renal cyst. Additional too small to characterize hypodense bilateral renal lesions are noted. Retroperitoneum: No lymphadenopathy. Bowel and mesentery: Bowel is nonobstructed. Normal appendix. Acute diverticulitis of the proximal sigmoid colon, near the neck of a small left inguinal hernia. Location is similar to prior episode of diverticulitis. No pneumoperitoneum. Bladder: Unremarkable for degree of distension. Reproductive organs: Post prostatectomy. Pelvic lymph nodes: Prior lymph node dissection. No lymphadenopathy. Vessels: Atherosclerotic calcifications. Abdominal wall: No acute abdominal wall abnormality. Bones: Multilevel degenerative changes of the spine. No suspicious/aggressive focal osseous lesion. IMPRESSION: Mild acute diverticulitis of the proximal sigmoid colon, near the neck of a small left inguinal hernia. Location is similar to prior episode of diverticulitis. Please note that all CT scans at this facility use dose modulation, iterative reconstruction, and/or weight-based dosing when appropriate to reduce radiation dose to as low as reasonably achievable. Dictated by Ayaka Pedroza MD @ 03/06/2023 2:35:50 PM (Electronic Signature) Critical Care Time Critical Care Time Critical Care Time: No Discharge Plan Discharge Clinical Impression: Diverticulitis, Inguinal hernia, left Patient Disposition: Home, Self-Care Condition: Stable Instructions: Diverticulitis (ED), Inguinal Hernia (ED), Diverticulitis Diet (ED) Additional Instructions: Start oral antibiotics this evening and take as prescribed. Can use Tylenol and ibuprofen per bottle directions as needed for pain control. Need to follow up in clinic next week with your primary care provider, have them refer you to general surgery. Updated colonoscopy should be ordered at the appropriate timing from this episode of acute infection. If you develop increasing abdominal pain, fevers, vomiting, feel you are worsening, return to the emergency room for re-evaluation. Activity Level: Activity as Tolerated Prescriptions: New amoxicillin-pot clavulanate 875-125 mg tablet 1 tab PO BID Qty: 20 0RF No Action atorvastatin 20 mg tablet 20 mg Patient Comments: TAKE ONE TABLET BY MOUTH ONE TIME DAILY AT BEDTIME Follow Up/Referrals: Provider,Not a Local [Referring] - Stand Alone Forms: [employer] Info Instructions
--- NOTE | 2023-03-06 12:05 | CRLHL7_ITS ---
For Patients: As a result of the Cures Act, medical imaging exams and procedure reports are released immediately into your electronic medical record. You may view this report before your referring provider. If you have questions, please contact your health care provider. INDICATION: Nausea. Left lower quadrant pain. TECHNIQUE: CT abdomen and pelvis acquired with 98 mL Isovue 370 contrast. COMPARISON: CT abdomen/pelvis dated 10/07/2022. FINDINGS: Lower chest: Mild bibasilar dependent atelectasis. No focal consolidation. Liver: No suspicious focal hepatic lesion. Gallbladder and bile ducts: Subtle cholelithiasis. No secondary signs of acute cholecystitis. Pancreas: Unremarkable. Spleen: Unremarkable. Adrenal glands: Unremarkable. Kidneys: Kidneys enhance symmetrically, without hydronephrosis. Stable right upper pole renal cyst. Additional too small to characterize hypodense bilateral renal lesions are noted. Retroperitoneum: No lymphadenopathy. Bowel and mesentery: Bowel is nonobstructed. Normal appendix. Acute diverticulitis of the proximal sigmoid colon, near the neck of a small left inguinal hernia. Location is similar to prior episode of diverticulitis. No pneumoperitoneum. Bladder: Unremarkable for degree of distension. Reproductive organs: Post prostatectomy. Pelvic lymph nodes: Prior lymph node dissection. No lymphadenopathy. Vessels: Atherosclerotic calcifications. Abdominal wall: No acute abdominal wall abnormality. Bones: Multilevel degenerative changes of the spine. No suspicious/aggressive focal osseous lesion. IMPRESSION: Mild acute diverticulitis of the proximal sigmoid colon, near the neck of a small left inguinal hernia. Location is similar to prior episode of diverticulitis. Please note that all CT scans at this facility use dose modulation, iterative reconstruction, and/or weight-based dosing when appropriate to reduce radiation dose to as low as reasonably achievable. Dictated by Ayaka Pedroza MD @ 03/06/2023 2:35:50 PM (Electronically Signed)
[2023-03-06] MEDS: KETOROLAC 15 MG/ML inj IVP (12:29)
[2023-03-06] MEDS: ONDANSETRON 2 MG/ML inj 4 MG IVP (12:30)
[2023-03-06 12:42] LABS: Lactate* 1.1 mmol/L (0.5-1.9)
[2023-03-06 12:46] LABS: Basophils Absolute Auto 0.03 K/uL (0.00-0.30); Basophils Percent Auto 0.3 % (0.0-3.0); Eosinophils Absolute Auto 0.32 K/uL (0.00-0.50); Hematocrit 48.5 % (37.0-53.0); Hemoglobin* 16.8 gm/dL (13.5-17.5); Immature Granulocytes Abs Auto 0.01 K/uL (0.00-0.30); Immature Granulocytes Pct Auto 0.1 %; Lymphocytes Percent Auto 15.8 % (20-44); Mean Corpuscular HGB Conc 35 gm/dL (32-36); Mean Corpuscular Hemoglobin 32 pg (26-34); Mean Corpuscular Volume 92 fL (80-100); Monocytes Percent Auto 6.3 % (0.0-11.0); Neutrophils Percent Auto 74.5 % (42.0-72.0); Platelet Count* 254 K/uL (140-440); RDW Coefficient of Variation % 12.3 % (11.5-15.5); Red Blood Count 5.26 m/uL (4.30-5.90); White Blood Count* 10.56 K/uL (4.50-11.00)
[2023-03-06 12:48] LABS: Slide Review Reflex No
[2023-03-06 12:51] LABS: Appearance Urine Clear (Clear); Bilirubin Urine Negative (Negative); Blood Urine Trace-intact (Negative); Color Urine Yellow (Yellow); Glucose Urine Negative (Negative); Ketones Urine Negative (Negative); Leukocyte Esterase Urine Negative (Negative); Nitrite Urine Negative (Negative); Protein Urine Negative (Negative); Specific Gravity Urine 1.025 (1.000-1.030); Urobilinogen Urine 0.2 (0.2-1.0); pH Urine 5.5 (5.0-8.5)
[2023-03-06 13:02] LABS: Bacteria Urine Few; RBC Urine 0-2 (0-2); Squamous Epithelial Cell Urine Few (None-Few); WBC Urine 0-2 (0-5)
[2023-03-06 13:03] LABS: Albumin* 4.6 g/dL (3.3-5.0); Chloride* 100 mmol/L (96-114); Potassium* 3.7 mmol/L (3.6-5.1); Sodium* 137 mmol/L (135-149)
[2023-03-06 13:05] LABS: Bilirubin Total* 1.1 mg/dL (0.1-1.5); Creatinine* 1.4 mg/dL (0.5-1.5); Est. Creatinine Clearance* 44.94; Estimated Glomerular Filt Rate 54 ml/min
[2023-03-06 13:06] LABS: Alanine Aminotransferase* 26 U/L (4-50); Alkaline Phosphatase* 73 U/L (40-150); Aspartate Amino Transferase* 29 U/L (12-35); Carbon Dioxide* 28 mmol/L (20-32); Total Protein* 7.8 g/dL (6.0-8.3)
[2023-03-06 13:07] LABS: Blood Urea Nitrogen* 18 mg/dL (7-30); Calcium* 9.9 mg/dL (8.4-10.6); Glucose* 86 mg/dL (60-115)
[2023-03-06 13:14] LABS: C Reactive Protein* < 0.5 mg/dL (0.5-1.0)
[2023-03-06] MEDS: 0.9 % SODIUM CHLORIDE 1000 ml 1,000 ML 500 ML IV (13:45)
[2023-03-06 13:55] VITALS: BP 149/75; PULSE 63; RESP 18; TEMP 36; O2SAT 98
[2023-03-06] MEDS: AMPICILLIN/SULBACTAM 3 GM in 0.9 % SODIUM CHLORIDE Mini-bag 100 ML IVPB (14:55)
[2023-03-06 15:34] VITALS: BP 158/82; PULSE 58; RESP 20; TEMP 35.8; O2SAT 96
--- NOTE | 2023-03-06 15:39 | ED.NURSE ---
Antibiotics completed, had approx 200ml of normal saline left but wanted to discharge before completion of them.
== END 2023-03-06 15:42 | disposition home or self-care (01) ==
PROVIDERS: Emergency Provider Family Medicine; PCP Family Medicine
DX: K57.92 Diverticulitis of intestine, part unspecified, without perforation or abscess without bleeding (principal); K40.90 Unilateral inguinal hernia, without obstruction or gangrene, not specified as recurrent
CPT/HCPCS: 36415; 74177; 80053; 81001; 83605; 85025; 86140; 87086; 96365; 96375; 99284; J0295; J1885; J2405; J7030; Q9967